=== PATIENT | female | born 1950 | race Asian ===

== ENCOUNTER 2025-02-20 06:52 | Inpatient (IN) | payer MEDICARE, SELFPAY ==
[2025-02-20] VITALS (65 sets, daily range): BP systolic 111–173; BP diastolic 55–108; PULSE 84–104; RESP 14–38; TEMP 28.7–37.1; O2SAT 29–98; BMI 32.3; BMI 32.5
[2025-02-20] MEDS: ALBUTEROL/IPRATROPIUM 3 ML AMPUL INH (07:14)
--- NOTE | 2025-02-20 07:16 | PC.NURSE ---
RT at [facility], placing pt on BiPAP, 6mg duoneb given per Dr. Avila, 125mg solumedrol given IV. Pt desat down to 27% RA, placed on NRB with minimal improvement
--- NOTE | 2025-02-20 07:18 | DI.RAD.S_ITS ---
PROCEDURE: XR CHEST 1V INDICATIONS: Shortness of breath TECHNIQUE: One view of the chest was acquired. COMPARISON: None. FINDINGS: Surgical changes and devices: None. Lungs and pleura: Extensive right-sided fluffy consolidation. Mild patchy consolidation in the left lung. Mediastinum: Mediastinal contours appear normal. Heart size is normal. Bones and chest wall: No suspicious bony lesions. Overlying soft tissues appear unremarkable. IMPRESSION: Findings may either be remarkably asymmetric pulmonary edema or bilateral pneumonia, right much greater than left. Recommend clinical correlation. Comment: Progress films are recommended until clear. Dictated by: Harris De La Paz M.D. on 02/20/2025 at 8:13 Approved by: Harris De La Paz M.D. on 02/20/2025 at 8:14
[2025-02-20 07:19] LABS: Allen Test for ABG Passed? Positive; Blood Gas Collection Site Left Radial; HCO3 ABG 28 mmol/L (23-27); Oxygen Saturation ABG 76 % (95-100); PCO2 ABG 57.8 mmHg (35-45); PO2 ABG 46 mmHg (80-100); TCO2 ABG 27 mmol/L (23-27)
[2025-02-20] MEDS: FUROSEMIDE 40 MG/4 ML VIAL IV ×2 (07:30→12:26)
[2025-02-20 07:43] LABS: Hematocrit 43.0 % (36-46); Hemoglobin 14.0 g/dL (12.0-16.0); Mean Corpuscular HGB Conc 32.6 % (30-36); Mean Corpuscular Hemoglobin 29.6 PG (26-34); Mean Corpuscular Volume 90.7 fL (80-100); Platelet Count 223 X10^3/uL (150-400)
[2025-02-20 07:48] LABS: Add Manual Diff / Slide Review YES
[2025-02-20 07:49] LABS: Lactate (Lactic Acid) 2.1 mmol/L (0.7-2.1)
[2025-02-20 07:50] LABS: Alanine Aminotransferase 32 IU/L (<35); Albumin 4.2 g/dL (3.5-5.0); Albumin Globulin Ratio 1.0 (1.0-2.8); Alkaline Phosphatase 102 U/L (38-126); Blood Urea Nitrogen 58 mg/dL (7-17); Calcium 9.1 mg/dL (8.4-10.2); Carbon Dioxide 25 mmol/L (22-32); Chloride 104 mmol/L (98-107); Estimated Glomerular Filt Rate 17 mL/min (>60); Globulin 4.1 g/dL (1.7-4.1); Glucose 335 mg/dL (70-99); HEMOLYSIS 24 (0-50); Potassium 5.1 mmol/L (3.4-5.1); Sodium 140 mmol/L (137-145); Total Protein 8.3 g/dL (6.3-8.2)
[2025-02-20 08:02] LABS: NT-proBNP (BNP-Adult 18+) 5020 pg/mL (<125); Troponin I 0.044 ng/mL (0.01-0.034)
[2025-02-20 08:12] LABS: INR 1.1 (0.9-1.3); Prothrombin Time 12.3 SECONDS (9.4-12.5)
[2025-02-20 08:17] LABS: Procalcitonin 5.84 ng/mL (<0.5)
[2025-02-20 08:23] LABS: Band Neutrophils Percent 34.0 % (3-7); Lymphocytes Percent Manual 7.0 % (25-45); Monocytes Percent Manual 6.0 % (2-11); Neutrophils Absolute Manual 15834 /uL (3000-5900); Segmented Neutrophils Percent 53.0 % (38-70); Total Cells Counted 100
[2025-02-20 08:24] LABS: RBC Morphology Normal Morphology
--- NOTE | 2025-02-20 08:31 | ED_ITS ---
HPI - SOB/Dyspnea General Chief Complaint: Shortness of Breath/Dyspnea Stated Complaint: SOB , wheezing X 1 day Time Seen by Provider: 02/20/25 07:21 Source: patient Mode of arrival: Wheelchair Limitations: no limitations History of Present Illness HPI Narrative: 74-year-old woman visiting her family from the [facility] comes to the ER because of sudden onset of shortness of breath which has been worsening over the past day or so. They deny any fever or chills sweats upper respiratory symptoms, chest pain, palpitations, syncope, lightheadedness. Her primary complaint is shortness of breath. Her oxygen saturation was in the 20s to 30s with a good plus on room air on presentation. On 15 L non-rebreather mask she was able to get up into the 80s and then when she was put on BiPAP she was into the 90s. She was given Solu-Medrol, DuoNebs, and Lasix as soon as possible because she also has an apparent history of CHF and her physical exam was consistent with pulmonary edema. Related Data Allergies Allergy/AdvReac Type Severity Reaction Status Date / Time No Known Drug Allergies Allergy Verified 02/20/25 07:12 Patient History Smoking Status: Never smoker Exam Initial Vital Signs Initial Vital Signs: Vital Signs Temperature 98.8 F 02/20/25 07:07 Pulse Rate 104 H 02/20/25 07:07 Respiratory Rate 30 H 02/20/25 07:07 Blood Pressure 173/81 H 02/20/25 07:07 Pulse Oximetry 53 L 02/20/25 07:07 Oxygen Delivery Method Room Air 02/20/25 07:07 Const General: acute distress, in distress, No diaphoretic, ill appearing and No lethargic Nutritional Appearance: overweight [facility] Head: normocephalic and atraumatic Nose: external nose normal and No nasal discharge Face and sinus: normal facial exam Neck Carotids: no bruits Chest Chest: normal inspection of the chest Resp Effort & Inspection: labored, respiratory distress, tachypneic, uses accessory muscles and symmetric chest movement Auscultation: crackles, diminished lung sounds and wheezes Cardio Rate: tachycardic Rhythm: regular rhythm Heart Sounds: S1 normal and S2 normal GI Palpation: soft and No tender Course Course Course Narrative: Patient seen and examined upon arrival in the ER. Her oxygen saturation was poor on room air but improved to a more acceptable level once she was on non- rebreather mask and improved even further once on BiPAP. Her ABG showed acidosis, hypoxia, hypercarbia, her exam was consistent with CHF exacerbation and asthma exacerbation as she did have response to DuoNeb immediately as well. She also had sepsis labs drawn but there was no clear evidence of pneumonia and she also had no fever. She did meet SIRS criteria however. The hospitalist was informed of this. The patient stabilized while on BiPAP but she will need admission for ongoing treatment of her CHF/asthma exacerbation and she should have a V/Q scan to rule out a PE as she can not have a CTA because of her poor kidney function. Decision to Admit Date: 02/20/25 Decision to Admit time: 08:20 Orders Ordered: ED Orders 02/20/25 07:05 C-Reactive Protein Quant Stat Complete Blood Count AUTO DIFF Stat Comprehensive Metabolic Panel Stat D Dimer Stat Lactate (Lactic Acid) Stat NT-proBNP (BNP-Adult 18+) Stat PTT Partial Thromboplastin Cb Stat Prothrombin Time INR Stat Troponin I Stat 02/20/25 07:10 ABG [Arterial Blood Gas] STAT 02/20/25 07:15 Procalcitonin Stat 02/20/25 07:18 XR chest 1V Stat EKG-12 Lead Stat RT Consult Eval and Treat STAT 02/20/25 07:21 Respiratory Panel (Film Array) Stat 02/20/25 07:22 EKG-12 Lead Stat 02/20/25 07:25 Respiratory Panel (Film Array) Stat BiPAP Ventilatory Support RT PROTOCOL 02/20/25 08:13 CT angio chest PE protocol Stat 02/20/25 08:15 Blood Culture Stat 02/20/25 08:27 NM pul vent and perfusion Stat 02/20/25 09:05 Troponin I Stat 02/20/25 11:15 ABG [Arterial Blood Gas] STAT Discontinued Medications Albuterol/Ipratropium (Albuterol/Ipratropium 3 Ml Ampul) 3 ml INH NOW ONE Stop: 02/20/25 07:12 Last Admin: 02/20/25 07:14 Dose: 3 ml Documented By: SANDRA Furosemide (Furosemide 40 Mg/4 Ml Vial) 40 mg IV NOW ONE Stop: 02/20/25 07:23 Last Admin: 02/20/25 07:30 Dose: 40 mg Documented By: JUAN MANUEL Methylprednisolone (Methylprednisolone 125 Mg/2 Ml Vial) 125 mg IV NOW ONE Stop: 02/20/25 07:12 Last Admin: 02/20/25 07:14 Dose: 125 mg Documented By: SANDRA Vital Signs Vital signs: Vital Signs - 8 hr 02/20/25 07:07 02/20/25 07:33 Temperature 98.8 F Pulse Rate 104 H Respiratory Rate 30 H Blood Pressure 173/81 H 173/81 H Pulse Oximetry 53 L Oxygen Delivery Method Room Air Fraction of Inspired Oxygen 55 MDM - SOB/Dyspnea Differential Diagnosis Differential diagnosis: Likely congestive heart failure and asthma with exacerbation Condition is:: Improved Lab Data 02/20/25 07:05 02/20/25 07:05 Labs: Lab Results 02/20/25 02/20/25 Range/Units 07:05 07:15 WBC 18.2 H (4.5-11.0) X10^3/uL RBC 4.73 (4.0-5.2) X10^6/uL Hgb 14.0 (12.0-16.0) g/dL Hct 43.0 (36-46) % MCV 90.7 (80-100) fL MCH 29.6 (26-34) PG MCHC 32.6 (30-36) % RDW 16.4 H (11.6-14.8) % Plt Count 223 (150-400) X10^3/uL Neut % (Auto) Not Reportable Lymph % (Auto) Not Reportable [place] % (Auto) Not Reportable Eos % (Auto) Not Reportable Baso % (Auto) Not Reportable Lymph # (Auto) Not Reportable [place] # (Auto) Not Reportable Baso # (Auto) Not Reportable Total Counted 100 Seg Neutrophils % 53.0 (38-70) % Band Neutrophils % 34.0 H (3-7) % Lymphocytes % (Manual) 7.0 L (25-45) % Monocytes % (Manual) 6.0 (2-11) % Neutrophils # (Manual) 55382 H (3089-2508) /uL Platelet Estimate Adequate on smear RBC Morphology Normal morphology PT 12.3 (9.4-12.5) SECONDS INR 1.1 (0.9-1.3) D-Dimer 1784 H (<500) ng/ml ABG Sample Site Left radial ABG pH 7.29 L* (7.35-7.45) ABG pCO2 57.8 H (35-45) mmHg ABG pO2 46 L* (80-100) mmHg ABG HCO3 28 H (23-27) mmol/L ABG Total CO2 27 (23-27) mmol/L ABG O2 Saturation 76 L* (95-100) % ABG Base Excess -0.5 (-2-3) mmol/L Braden Test Positive Sodium 140 (137-145) mmol/L Potassium 5.1 (3.4-5.1) mmol/L Chloride 104 (98-107) mmol/L Carbon Dioxide 25 (22-32) mmol/L BUN 58 H (7-17) mg/dL Creatinine 2.86 H (0.52-1.04) mg/dL Estimated GFR 17 L (>60) mL/min BUN/Creatinine Ratio 20.3 (6-22) Glucose 335 H (70-99) mg/dL Lactate 2.1 (0.7-2.1) mmol/L Calcium 9.1 (8.4-10.2) mg/dL Total Bilirubin 1.2 (0.2-1.3) mg/dL AST 48 H (14-36) IU/L ALT 32 (<35) IU/L Alkaline Phosphatase 102 (38-126) U/L Troponin I 0.044 H (0.01-0.034) ng/mL NT-Pro-B Natriuret Pep 5020 H (<125) pg/mL Total Protein 8.3 H (6.3-8.2) g/dL Albumin 4.2 (3.5-5.0) g/dL Globulin 4.1 (1.7-4.1) g/dL Albumin/Globulin Ratio 1.0 (1.0-2.8) Procalcitonin 5.84 H (<0.5) ng/mL MDM Narrative Medical decision making narrative: Patient is on BiPAP and will thus need to be admitted Discharge Plan Departure Patient Disposition: Admitted As Inpatient Clinical Impression: Congestive heart failure Qualifiers: Heart failure type: unspecified Heart failure chronicity: acute on chronic Q ualified Code(s): I50.9 - Heart failure, unspecified Admit Date/Time: 02/20/25 08:32
[2025-02-20 08:43] LABS: PTT Partial Thromboplastin Tim 34 SECONDS (25.1-36.5)
--- NOTE | 2025-02-20 08:46 | EKG_ITS ---
[address] [address] Test Date: 2025-02-20 Pat Name: Radha Telles Department: [facility] Room: 90A Gender: Female [employer] Receivable Coordinator: ALESSIO : 1950 Requested By: Order Number: [id number] Reading MD: Robert Rodriguez MD Measurements Intervals [place] Rate: 90 P: 57 MT: 220 QRS: 29 QRSD: 78 T: 82 QT: 366 QTc: 447 Interpretive Statements Sinus rhythm with 1st degree AV block Low voltage QRS Electronically Signed On 02-20-2025 12:15:48 PDT by Robert Rodriguez MD
[2025-02-20 09:15] LABS: Coronavirus NL 63 Not Detected (Not Detect); SARS- CoV-2 Not Detected (Not Detecte)
[2025-02-20 09:20] LABS: Reflexed Lactate in 2 Hours Y
[2025-02-20 09:59] LABS: Lactate 2HR (Lactic Acid Rflx) 1.7 mmol/L (0.7-2.1)
--- NOTE | 2025-02-20 10:03 | PC.ADMIT ---
[address] Admission Note: Pt arrived via stretcher from the ED at approximately 0945, A&Ox4, on BiPAP, O2 saturation 89%. BP 137/85, HR 90, RR 28. Provider notified of pt arrival. Pt unable to void on bedpan or on pad, provider notified. Pt oriented to room and call light, family at bedside. Left astudillo ring removed and given to family due to hand edema. Care ongoing. The patient,Radha Telles,74 y/o, was given written information regarding hospital policies, unit procedures and contact persons. Patient's smoking status: Never smoker. Vital Signs - 8 hr 02/20/25 06:56 02/20/25 07:05 02/20/25 07:07 Temperature 98.8 F Pulse Rate 95 H 104 H Respiratory Rate 30 H Blood Pressure 173/81 H Pulse Oximetry 29 L 46 L 53 L Oxygen Delivery Method Room Air Non -Rebreather Room Air Fraction of Inspired Oxygen 02/20/25 07:07 02/20/25 07:07 02/20/25 07:15 Temperature Pulse Rate 104 H Respiratory Rate Blood Pressure 173/81 H Pulse Oximetry 76 L 85 L Oxygen Delivery Method Non -Rebreather BiPAP Fraction of Inspired Oxygen 02/20/25 07:30 02/20/25 07:33 02/20/25 07:51 Temperature Pulse Rate 102 H 97 H Respiratory Rate 23 Blood Pressure 173/81 H Pulse Oximetry 91 91 Oxygen Delivery Method BiPAP BiPAP Fraction of Inspired Oxygen 55 02/20/25 07:51 02/20/25 08:00 02/20/25 08:00 Temperature Pulse Rate 96 H Respiratory Rate 21 Blood Pressure 124/59 L 118/56 L Pulse Oximetry 89 L Oxygen Delivery Method BiPAP Fraction of Inspired Oxygen 02/20/25 08:30 02/20/25 08:30 02/20/25 09:00 Temperature Pulse Rate 91 H 88 Respiratory Rate 22 21 Blood Pressure 111/55 L Pulse Oximetry 89 L 91 Oxygen Delivery Method BiPAP BiPAP Fraction of Inspired Oxygen 02/20/25 09:00 02/20/25 09:29 02/20/25 09:29 Temperature Pulse Rate 92 H Respiratory Rate 17 Blood Pressure 111/55 L 128/65 Pulse Oximetry 90 L Oxygen Delivery Method BiPAP Fraction of Inspired Oxygen 02/20/25 09:30 02/20/25 09:30 02/20/25 10:00 Temperature Pulse Rate 92 H 93 H Respiratory Rate 14 21 Blood Pressure 132/68 Pulse Oximetry 89 L 92 Oxygen Delivery Method BiPAP Fraction of Inspired Oxygen 02/20/25 10:00 Temperature Pulse Rate Respiratory Rate Blood Pressure 131/65 Pulse Oximetry Oxygen Delivery Method Fraction of Inspired Oxygen
[2025-02-20 10:10] LABS: Troponin I 0.056 ng/mL (0.01-0.034)
--- NOTE | 2025-02-20 10:23 | PC.NURSE ---
0715 Patient placed on BIPAP. RT and Dr. Salguero at bedside.
--- NOTE | 2025-02-20 10:34 | RT ---
pt transported on BIPAP to ICU without incident, ambu Bag at [facility] with RN. Pt [facility] well, and Bipap plugged into red outlet upon arrival with current settings on pt. Family at bedside and pt comfortable
[2025-02-20] MEDS: AZITHROMYCIN 500 MG in DEXTROSE 5% IN WATER 250 ML 250 MG IV (11:08)
--- NOTE | 2025-02-20 11:31 | P.HP_ITS ---
History of Present Illness History of Present Illness Date Patient Seen: 02/20/25 Time Patient Seen: 11:31 Chief complaint: SOB , wheezing X 1 day Narrative: This is a 74-year-old female, visiting from the [facility], with a history of asthma, congestive heart failure, chronic kidney disease, diabetes mellitus type 2, hypertension and diabetic neuropathy who presents with 1 day of increasing shortness of breath along with a mild cough. She has had no fevers or chills. She has no chest pain. Her chest x-ray shows an area of obvious infiltrate in the right lung, less impressive on the left side. Her D-dimer is 1784 with a troponin of 0.056, a CRP of 37.1 and a procalcitonin of 5.84. The white blood count is 18.2 and the BNP is 5020. This would suggest both congestive heart failure and pneumonia are present. Unfortunately with a creatinine of 2.86 she is not a candidate for CTA of the chest so will need a V/Q scan when that is available. Her list of medications includes several from the [facility] that are not typically used here or able to match to the medications we have available. [facility] Medical History (Updated 02/20/25 @ 19:05 by Robert Odonnell MD) Diabetic neuropathy Hypertension Diabetes mellitus CKD (chronic kidney disease) stage 4, GFR 15-29 ml/min Active asthma Congestive heart failure Family History (Updated 02/20/25 @ 19:01 by Robert Odonnell MD) Daughter Healthy adult Son Healthy adult Social History household members: spouse Smoking Status: Never smoker Meds Home Medications and Allergies Home Medications ?Medication ?Instructions ?Recorded ?Confirmed ?Type Rezpira See Rx Instructions .Route . COMPLEX 02/20/25 02/20/25 History rosuvastatin 20 mg tablet (Crestor) 20 mg PO DAILY 07/0702/20/25 History Allergies Allergy/AdvReac Type Severity Reaction Status Date / Time No Known Drug Allergies Allergy Verified 02/20/25 07:12 Review of Systems Review of Systems Narrative: Positive for shortness of breath and coughing. Negative for fevers, chills, sweats, nausea, vomiting, abdominal pain, chest pain, rashes, bleeding, dysuria, joint pain, headache, sore throat, new allergies. Exam Vital Signs (past 8 hours): - 02/20/25 06:56 02/20/25 07:05 02/20/25 07:07 Temperature 98.8 F Pulse Rate 95 H 104 H Respiratory Rate 30 H Blood Pressure 173/81 H Pulse Oximetry 29 L 46 L 53 L Oxygen Delivery Method Room Air Non -Rebreather Room Air Fraction of Inspired Oxygen 02/20/25 07:07 02/20/25 07:07 02/20/25 07:15 Temperature Pulse Rate 104 H Respiratory Rate Blood Pressure 173/81 H Pulse Oximetry 76 L 85 L Oxygen Delivery Method Non -Rebreather BiPAP Fraction of Inspired Oxygen 02/20/25 07:30 02/20/25 07:33 02/20/25 07:51 Temperature Pulse Rate 102 H 97 H Respiratory Rate 23 Blood Pressure 173/81 H Pulse Oximetry 91 91 Oxygen Delivery Method BiPAP BiPAP Fraction of Inspired Oxygen 55 02/20/25 07:51 02/20/25 08:00 02/20/25 08:00 Temperature Pulse Rate 96 H Respiratory Rate 21 Blood Pressure 124/59 L 118/56 L Pulse Oximetry 89 L Oxygen Delivery Method BiPAP Fraction of Inspired Oxygen 02/20/25 08:30 02/20/25 08:30 02/20/25 09:00 Temperature Pulse Rate 91 H 88 Respiratory Rate 22 21 Blood Pressure 111/55 L Pulse Oximetry 89 L 91 Oxygen Delivery Method BiPAP BiPAP Fraction of Inspired Oxygen 02/20/25 09:00 02/20/25 09:29 02/20/25 09:29 Temperature Pulse Rate 92 H Respiratory Rate 17 Blood Pressure 111/55 L 128/65 Pulse Oximetry 90 L Oxygen Delivery Method BiPAP Fraction of Inspired Oxygen 02/20/25 09:30 02/20/25 09:30 02/20/25 09:30 Temperature Pulse Rate 92 H 92 H Respiratory Rate 14 20 Blood Pressure 132/68 Pulse Oximetry 89 L Oxygen Delivery Method BiPAP Fraction of Inspired Oxygen 02/20/25 10:00 02/20/25 10:00 02/20/25 10:10 Temperature Pulse Rate 93 H Respiratory Rate 21 Blood Pressure 131/65 111/55 L Pulse Oximetry 92 Oxygen Delivery Method Fraction of Inspired Oxygen 60 Fraction of Inspired Oxygen 60 Oxygen Delivery Method BiPAP Narrative Exam Narrative: Alert and oriented times 3. Moderate respiratory distress present. Wearing BiPAP. Pupils are equally round and reactive to light and accommodation. Extraocular muscles are intact. Sclerae are pink and nonicteric. Throat looks normal. No lymph nodes are felt head, neck, supraclavicular area. There is no thyromegaly. JVD is less than 6 cm. No carotid bruits heard Heart is regular rate and rhythm without murmur Lungs clear to auscultation bilaterally Abdomen is soft, bowel sounds positive, nontender, no organomegaly. Extremities have no ankle edema Skin has no rash Neurological exam: Motor function 5/5 throughout. DTRs symmetric. Cranial nerves 2-12 test intact. There is no tremor. Objective Labs 02/20/25 07:05 02/20/25 07:05 Labs: Laboratory Results - last 24 hr 02/20/25 02/20/25 02/20/25 07:05 07:15 07:17 WBC 18.2 H RBC 4.73 Hgb 14.0 Hct 43.0 MCV 90.7 MCH 29.6 MCHC 32.6 RDW 16.4 H Plt Count 223 Neut % (Auto) Not Reportable Lymph % (Auto) Not Reportable [place] % (Auto) Not Reportable Eos % (Auto) Not Reportable Baso % (Auto) Not Reportable Lymph # (Auto) Not Reportable [place] # (Auto) Not Reportable Baso # (Auto) Not Reportable Total Counted 100 Seg Neutrophils % 53.0 Band Neutrophils % 34.0 H Lymphocytes % (Manual) 7.0 L Monocytes % (Manual) 6.0 Neutrophils # (Manual) 59049 H Platelet Estimate Adequate on smear RBC Morphology Normal morphology PT 12.3 INR 1.1 APTT 34 D-Dimer 1784 H ABG Sample Site Left radial ABG pH 7.29 L* ABG pCO2 57.8 H ABG pO2 46 L* ABG HCO3 28 H ABG Total CO2 27 ABG O2 Saturation 76 L* ABG Base Excess -0.5 Braden Test Positive Sodium 140 Potassium 5.1 Chloride 104 Carbon Dioxide 25 BUN 58 H Creatinine 2.86 H Estimated GFR 17 L BUN/Creatinine Ratio 20.3 Glucose 335 H POC Whole Bld Glucose Lactate 2.1 Calcium 9.1 Total Bilirubin 1.2 AST 48 H ALT 32 Alkaline Phosphatase 102 Troponin I 0.044 H C-Reactive Protein 37.1 H NT-Pro-B Natriuret Pep 5020 H Total Protein 8.3 H Albumin 4.2 Globulin 4.1 Albumin/Globulin Ratio 1.0 Procalcitonin 5.84 H Chlamy pneumoniae PCR Not detected Adenovirus (PCR) Not detected B. pertussis DNA (PCR) Not detected B.parapertussis DNA PCR Not detected Coronavirus OC43 (PCR) Not detected Coronavirus HKU1 (PCR) Not detected Coronavirus 229E (PCR) Not detected SARS-CoV-2 (PCR) Not detected Coronavirus NL63 (PCR) Not detected Human Metapneumovir PCR Not detected Influenza Type A (PCR) Not detected Influenza Type B (PCR) Not detected M. pneumoniae (PCR) Not detected Parainfluenza 1 (PCR) Not detected Parainfluenza 2 (PCR) Not detected Parainfluenza 3 (PCR) Not detected Parainfluenza 4 (PCR) Not detected RSV (PCR) Not detected Entero/Rhino (PCR) Not detected 02/20/25 02/20/25 09:25 10:39 WBC RBC Hgb Hct MCV MCH MCHC RDW Plt Count Neut % (Auto) Lymph % (Auto) [place] % (Auto) Eos % (Auto) Baso % (Auto) Lymph # (Auto) [place] # (Auto) Baso # (Auto) Total Counted Seg Neutrophils % Band Neutrophils % Lymphocytes % (Manual) Monocytes % (Manual) Neutrophils # (Manual) Platelet Estimate RBC Morphology PT INR APTT D-Dimer ABG Sample Site ABG pH ABG pCO2 ABG pO2 ABG HCO3 ABG Total CO2 ABG O2 Saturation ABG Base Excess Braden Test Sodium Potassium Chloride Carbon Dioxide BUN Creatinine Estimated GFR BUN/Creatinine Ratio Glucose POC Whole Bld Glucose 342 H Lactate 1.7 Calcium Total Bilirubin AST ALT Alkaline Phosphatase Troponin I 0.056 H C-Reactive Protein NT-Pro-B Natriuret Pep Total Protein Albumin Globulin Albumin/Globulin Ratio Procalcitonin Chlamy pneumoniae PCR Adenovirus (PCR) B. pertussis DNA (PCR) B.parapertussis DNA PCR Coronavirus OC43 (PCR) Coronavirus HKU1 (PCR) Coronavirus 229E (PCR) SARS-CoV-2 (PCR) Coronavirus NL63 (PCR) Human Metapneumovir PCR Influenza Type A (PCR) Influenza Type B (PCR) M. pneumoniae (PCR) Parainfluenza 1 (PCR) Parainfluenza 2 (PCR) Parainfluenza 3 (PCR) Parainfluenza 4 (PCR) RSV (PCR) Entero/Rhino (PCR) Assessment & Plan Assessment & Plan narrative: This is a 74-year-old female, visiting from the [facility], with a history of asthma, congestive heart failure, chronic kidney disease, diabetes mellitus type 2, hypertension and diabetic neuropathy who presents with 1 day of increasing shortness of breath along with a mild cough. She has had no fevers or chills. She has no chest pain. Her chest x-ray shows an area of obvious infiltrate in the right lung, less impressive on the left side. Her D-dimer is 1784 with a troponin of 0.056, a CRP of 37.1 and a procalcitonin of 5.84. The white blood count is 18.2 and the BNP is 5020. This would suggest both congestive heart failure and pneumonia are present. Acute Hypoxemic Respiratory Failure, present on admission, active. -oxygen saturation was in the 20s to 30s on room air on presentation. On 15 L non-rebreather mask she was able to get up into the 80s and then when she was put on BiPAP she was into the 90s. -rule out PE with V/Q scan, pending. -most likely due to a combination of congestive heart failure and pneumonia based on preliminary test results -chest x-ray is compatible with both diagnoses. -oxygen by BiPAP or high-flow nasal cannula and titrate as needed. -beta agonist inhaler therapy. Pneumonia, present on admission, active. -ceftriaxone and azithromycin. -white blood count 18.2, follow -procalcitonin 5.84, follow. CHF, present on admission, active. -echocardiogram ordered -Lasix IV q.12 hours and follow electrolytes. -follow troponin. -continue losartan Insulin Dependent DM with Diabetic Neuropathy, present on admission, chronic. -substitute Lantus for Humulin N -continue lispro high-dose correctional scale -continue Lyrica -Check ketones and serum osmolality due to blood sugar reaching above 500 despite SQ insulin several hours after admission. Hyperlipidemia, present on admission, chronic. -continue atorvastatin Chronic Kidney disease, present on admission, chronic. -creatinine 2.86, follow. Hypertension, present on admission, chronic. -continue clonidine, amlodipine, losartan. Starting on doses that are below her usual chronic dose. Adjust as indicated. Her backup decision maker is her and her daughter who is an ED doctor. Enoxaparin for DVT prevention Time-Based Coding :: [TOTAL MINUTES] spent with patient and on the chart (including review of chart, obtaining history, exam, reviewing outside data, placing orders, documenting exam and treatment plan, and counseling patient) on [DATE].
[2025-02-20] MEDS: cefTRIAXone 2,000 MG in SODIUM CHLORIDE 0.9% 100 ML 200 MG IV (12:25)
[2025-02-20] MEDS: INSULIN LISPRO 100 UNIT/ML 3ML VIAL SUBCUT ×3 (12:48→21:33)
--- NOTE | 2025-02-20 14:56 | PC.NURSE ---
Addendum entered by Deepa Juárez R.N. 02/20/25 19:07: Glucose reported back by lab, provider notified. New orders received. Care ongoing. Addendum entered by Deepa Juárez R.N. 02/20/25 18:41: Pt on heated high flow for a period of the evening. Back on BiPAP at 1835 d/t SOB and fatigue with oxygen desaturation despite RT increasing heated high flow FiO2 and liters. Glucose on recheck >500, provider notified, lab drawn per protocol for verification. Care ongoing. Original Note: Day shift: Pt A&Ox4, tolerating BiPAP. Dior catheter placed. Off BiPAP at approximately 1225 for meal, on 7L NC saturation 86%-94%. Pt back on BiPAP at 1330, settings remained unchanged. Family at bedside. Home medication list sent to pharmacy for rec d/t differing brands/out of country brands of medications and clarificiation. Call light within reach, care ongoing.
[2025-02-20] MEDS: INSULIN GLARGINE 100 UNIT/ML 3ML PEN 20 UNIT SUBCUT ×2 (17:00→21:32)
[2025-02-20] MEDS: INSULIN LISPRO 100 UNIT/ML 3ML VIAL 16 UNIT SUBCUT (18:53)
[2025-02-20 18:56] LABS: Glucose 569 mg/dL (70-99)
[2025-02-20 19:20] LABS: MRSA (Nasal) PCR NOT DETECTED (Not Detect)
[2025-02-20 20:04] LABS: Blood Urea Nitrogen 69 mg/dL (7-17); Calcium 7.9 mg/dL (8.4-10.2); Carbon Dioxide 29 mmol/L (22-32); Chloride 97 mmol/L (98-107); Estimated Glomerular Filt Rate 17 mL/min (>60); HEMOLYSIS < 15 (0-50); Sodium 135 mmol/L (137-145)
[2025-02-20 20:11] LABS: Ketones (Beta-Hydroxybutyrate) 0.05 mmol/L (<0.27)
[2025-02-20 20:17] LABS: Potassium 5.4 mmol/L (3.4-5.1)
[2025-02-20 20:18] LABS: Glucose 566 mg/dL (70-99)
[2025-02-20] MEDS: ATORVASTATIN 20 MG TABLET 40 MG PO (21:16)
[2025-02-20] MEDS: FAMOTIDINE 20 MG/2 ML VIAL IV (21:16)
[2025-02-20] MEDS: INSULIN GLARGINE 100 UNIT/ML 3ML PEN 10 UNIT SUBCUT (21:32)
[2025-02-20] MEDS: ALBUTEROL 2.5 MG/3 ML NEB (ADULT) INH (21:54)
[2025-02-20] MEDS: BUDESONIDE 0.5 MG/2 ML NEB INH (21:55)
[2025-02-21] VITALS (99 sets, daily range): BP systolic 107–145; BP diastolic 55–81; PULSE 75–101; RESP 14–42; TEMP 36.6; O2SAT 82–97
[2025-02-21] MEDS: FUROSEMIDE 40 MG/4 ML VIAL IV ×2 (00:12→12:01)
[2025-02-21 05:05] LABS: Add Manual Diff / Slide Review NO; Hematocrit 36.3 % (36-46); Hemoglobin 11.9 g/dL (12.0-16.0); Lymphocytes Absolute Auto 600 /uL (1100-4500); Mean Corpuscular HGB Conc 32.7 % (30-36); Mean Corpuscular Hemoglobin 29.4 PG (26-34); Mean Corpuscular Volume 89.7 fL (80-100); Platelet Count 170 X10^3/uL (150-400)
[2025-02-21 05:27] LABS: Alanine Aminotransferase 29 IU/L (<35); Albumin 3.5 g/dL (3.5-5.0); Albumin Globulin Ratio 1.0 (1.0-2.8); Alkaline Phosphatase 87 U/L (38-126); Blood Urea Nitrogen 80 mg/dL (7-17); Calcium 8.1 mg/dL (8.4-10.2); Carbon Dioxide 28 mmol/L (22-32); Chloride 101 mmol/L (98-107); Estimated Glomerular Filt Rate 14 mL/min (>60); Globulin 3.4 g/dL (1.7-4.1); Glucose 306 mg/dL (70-99); HEMOLYSIS < 15 (0-50); Potassium 4.9 mmol/L (3.4-5.1); Sodium 138 mmol/L (137-145); Total Protein 6.9 g/dL (6.3-8.2)
[2025-02-21 05:34] LABS: NT-proBNP (BNP-Adult 18+) 4850 pg/mL (<125)
[2025-02-21 05:38] LABS: Troponin I 0.074 ng/mL (0.01-0.034)
[2025-02-21 05:42] LABS: Procalcitonin 12.0 ng/mL (<0.5)
[2025-02-21] MEDS: ALBUTEROL 2.5 MG/3 ML NEB (ADULT) INH ×5 (07:27→23:00)
[2025-02-21] MEDS: BUDESONIDE 0.5 MG/2 ML NEB INH ×2 (07:27→19:17)
[2025-02-21] MEDS: INSULIN LISPRO 100 UNIT/ML 3ML VIAL SUBCUT ×3 (08:52→16:43)
[2025-02-21] MEDS: AMLODIPINE 5 MG TABLET 2.5 MG PO (08:53)
[2025-02-21] MEDS: PREGABALIN 75 MG CAPSULE PO (08:53)
[2025-02-21] MEDS: LOSARTAN 25 MG TABLET 12.5 MG PO (08:53)
[2025-02-21] MEDS: ENOXAPARIN 30 MG/0.3 ML SYRINGE SUBCUT (08:54)
[2025-02-21] MEDS: cefTRIAXone 2,000 MG in SODIUM CHLORIDE 0.9% 100 ML 200 MG IV (12:00)
[2025-02-21] MEDS: AZITHROMYCIN 500 MG in DEXTROSE 5% IN WATER 250 ML 250 MG IV (12:04)
--- NOTE | 2025-02-21 12:18 | DI.RAD.S_ITS ---
PROCEDURE: XR CHEST 1V INDICATIONS: sob TECHNIQUE: One view of the chest was acquired. COMPARISON: [facility], CR, XR CHEST 1V, 02/20/2025, 7:24. FINDINGS: Surgical changes and devices: None. Lungs and pleura: Bilateral patchy airspace opacity, right greater than left. Not significantly changed compared to yesterday. No significant pleural effusions. No pneumothorax. Mediastinum: Mediastinal contours appear normal. Heart size is enlarged. Bones and chest wall: No suspicious bony lesions. Overlying soft tissues appear unremarkable. IMPRESSION: No significant interval change. Bilateral patchy airspace opacity, right greater than left. Dictated by: Des Muñoz M.D. on 02/21/2025 at 12:29 Approved by: Des Muñoz M.D. on 02/21/2025 at 12:30
--- NOTE | 2025-02-21 12:19 | P.PN_ITS ---
Subjective Subjective Date Patient Seen: 02/21/25 Interval history: Chief complaint: Shortness for breath secondary to and congestive heart failure History of present illness: 01/21: 74-year-old female, visiting from the [facility], with a history of asthma, congestive heart failure, chronic kidney disease, diabetes mellitus type 2, hypertension and diabetic neuropathy who presents with 1 day of increasing shortness of breath along with a mild cough. She has had no fevers or chills. She has no chest pain. Her chest x-ray shows an area of obvious infiltrate in the right lung, less impressive on the left side. Her D-dimer is 1784 with a troponin of 0.056, a CRP of 37.1 and a procalcitonin of 5.84. The white blood count is 18.2 and the BNP is 5020. This would suggest both congestive heart failure and pneumonia are present. Unfortunately with a creatinine of 2.86 she is not a candidate for CTA of the chest so will need a V/Q scan when that is available. Her list of medications includes several from the [facility] that are not typically used here or able to match to the medications we have available. Hospital course: 01/22: Patient developed severe hypoglycemia greater than 600 insulin infusion started patient intermittently requiring high-flow nasal cannula and BiPAP Review of systems: Patient unable to participate in review of systems Physical exam: Obese female in respiratory distress and able to answer questions in short phrases HEENT unremarkable Heart sounds distant Lung sounds distant with short expiratory phases and wheezes with rales diminished sound transmission at bases and particularly at the right Abdomen nondistended Extremities no edema Moves all extremities Assessment and plan: This is a 74-year-old female, visiting from the [facility], with a history of asthma, congestive heart failure, chronic kidney disease, diabetes mellitus type 2, hypertension and diabetic neuropathy who presents with 1 day of increasing shortness of breath along with a mild cough. She has had no fevers or chills. She has no chest pain. Her chest x-ray shows an area of obvious infiltrate in the right lung, less impressive on the left side. Her D-dimer is 1784 with a troponin of 0.056, a CRP of 37.1 and a procalcitonin of 5.84. The white blood count is 18.2 and the BNP is 5020. This would suggest both congestive heart failure and pneumonia are present. Acute Hypoxemic Respiratory Failure, present on admission, active. -oxygen saturation was in the 20s to 30s on room air on presentation. On 15 L non-rebreather mask she was able to get up into the 80s and then when she was put on BiPAP she was into the 90s. -rule out PE with V/Q scan, pending. -most likely due to a combination of congestive heart failure and pneumonia based on preliminary test results -chest x-ray is compatible with both diagnoses. -oxygen by BiPAP or high-flow nasal cannula and titrate as needed. -beta agonist inhaler therapy. Pneumonia, present on admission, active. -ceftriaxone and azithromycin. -white blood count 18.2, follow -procalcitonin 5.84, follow. CHF, present on admission, active. -echocardiogram ordered -Lasix IV q.12 hours and follow electrolytes. -follow troponin. -continue losartan Insulin Dependent DM with Diabetic Neuropathy, present on admission, chronic. -substitute Lantus for Humulin N -continue lispro high-dose correctional scale -continue Lyrica -Check ketones and serum osmolality due to blood sugar reaching above 500 despite SQ insulin several hours after admission. Hyperlipidemia, present on admission, chronic. -continue atorvastatin Chronic Kidney disease, present on admission, chronic. -creatinine 2.86, follow. Hypertension, present on admission, chronic. -continue clonidine, amlodipine, losartan. Starting on doses that are below her usual chronic dose. Adjust as indicated. Her backup decision maker is her and her daughter who is an ED doctor. Enoxaparin for DVT prevention Time-Based Coding :: 35 minutes spent with patient and on the chart (including review of chart, obtaining history, exam, reviewing outside data, placing orders, documenting exam and treatment plan, and counseling patient) Exam Vital Signs (past 8 hours): - 02/21/25 04:30 02/21/25 04:45 02/21/25 05:00 Pulse Rate 88 83 Respiratory Rate 21 17 Blood Pressure 116/56 L Pulse Oximetry 94 95 Oxygen Delivery Method Oxygen Flow Rate Fraction of Inspired Oxygen 02/21/25 05:00 02/21/25 05:15 02/21/25 05:30 Pulse Rate 81 77 77 Respiratory Rate 17 17 17 Blood Pressure Pulse Oximetry 95 94 92 Oxygen Delivery Method Oxygen Flow Rate Fraction of Inspired Oxygen 02/21/25 05:45 02/21/25 06:00 02/21/25 06:00 Pulse Rate 76 80 Respiratory Rate 18 17 Blood Pressure 110/57 L Pulse Oximetry 91 93 Oxygen Delivery Method Oxygen Flow Rate Fraction of Inspired Oxygen 02/21/25 06:15 02/21/25 06:30 02/21/25 06:45 Pulse Rate 79 80 79 Respiratory Rate 19 18 18 Blood Pressure Pulse Oximetry 94 94 93 Oxygen Delivery Method Oxygen Flow Rate Fraction of Inspired Oxygen 02/21/25 07:00 02/21/25 07:00 02/21/25 07:00 Pulse Rate 81 Respiratory Rate 22 Blood Pressure 108/58 L Pulse Oximetry 95 Oxygen Delivery Method BiPAP Oxygen Flow Rate Fraction of Inspired Oxygen 02/21/25 07:15 02/21/25 07:27 02/21/25 07:30 Pulse Rate 88 82 Respiratory Rate 23 20 Blood Pressure 108/58 L Pulse Oximetry 94 95 Oxygen Delivery Method Oxygen Flow Rate Fraction of Inspired Oxygen 60 02/21/25 07:45 02/21/25 08:00 02/21/25 08:00 Pulse Rate 90 91 H Respiratory Rate 32 H 22 Blood Pressure 112/55 L Pulse Oximetry 97 96 Oxygen Delivery Method Oxygen Flow Rate Fraction of Inspired Oxygen 02/21/25 08:15 02/21/25 08:52 02/21/25 12:13 Pulse Rate 88 92 H 90 Respiratory Rate 22 22 20 Blood Pressure Pulse Oximetry 97 92 94 Oxygen Delivery Method Oxygen Flow Rate Fraction of Inspired Oxygen 02/21/25 12:15 Pulse Rate 90 Respiratory Rate 22 Blood Pressure Pulse Oximetry Oxygen Delivery Method Heated High Flow Oxygen Flow Rate 40 Fraction of Inspired Oxygen 70 Fraction of Inspired Oxygen 70 SaO2/FiO2 Ratio 146 Oxygen Delivery Method Heated High Flow Oxygen Flow Rate 40 Objective Labs 02/21/25 04:17 02/21/25 17:55 Labs: Laboratory Results - last 24 hr 02/20/25 02/20/25 02/20/25 16:40 17:00 18:30 WBC RBC Hgb Hct MCV MCH MCHC RDW Plt Count Neut % (Auto) Lymph % (Auto) [place] % (Auto) Eos % (Auto) Baso % (Auto) Neut # (Auto) Lymph # (Auto) [place] # (Auto) Eos # (Auto) Baso # (Auto) Sodium Potassium Chloride Carbon Dioxide BUN Creatinine Estimated GFR BUN/Creatinine Ratio Glucose 569 H* D POC Whole Bld Glucose 481 H* D > 500 H* Calcium Total Bilirubin AST ALT Alkaline Phosphatase Troponin I NT-Pro-B Natriuret Pep Total Protein Albumin Globulin Albumin/Globulin Ratio Procalcitonin Nasal Screen MRSA (PCR) Not detected Ketones 02/20/25 02/20/25 02/20/25 19:34 20:54 23:27 WBC RBC Hgb Hct MCV MCH MCHC RDW Plt Count Neut % (Auto) Lymph % (Auto) [place] % (Auto) Eos % (Auto) Baso % (Auto) Neut # (Auto) Lymph # (Auto) [place] # (Auto) Eos # (Auto) Baso # (Auto) Sodium 135 L Potassium 5.4 H Chloride 97 L Carbon Dioxide 29 BUN 69 H Creatinine 2.82 H Estimated GFR 17 L BUN/Creatinine Ratio 24.5 H Glucose 566 H* POC Whole Bld Glucose 451 H* 356 H Calcium 7.9 L Total Bilirubin AST ALT Alkaline Phosphatase Troponin I NT-Pro-B Natriuret Pep Total Protein Albumin Globulin Albumin/Globulin Ratio Procalcitonin Nasal Screen MRSA (PCR) Ketones 0.05 02/21/25 02/21/25 02/21/25 04:17 07:36 11:43 WBC 16.1 H RBC 4.05 Hgb 11.9 L Hct 36.3 MCV 89.7 MCH 29.4 MCHC 32.7 RDW 15.7 H Plt Count 170 Neut % (Auto) 92.0 H Lymph % (Auto) 3.7 L [place] % (Auto) 4.2 Eos % (Auto) 0.0 L Baso % (Auto) 0.1 Neut # (Auto) 91768 H Lymph # (Auto) 600 L [place] # (Auto) 700 Eos # (Auto) 0 Baso # (Auto) 0 Sodium 138 Potassium 4.9 Chloride 101 Carbon Dioxide 28 BUN 80 H Creatinine 3.27 H Estimated GFR 14 L BUN/Creatinine Ratio 24.5 H Glucose 306 H D POC Whole Bld Glucose 336 H 450 H* D Calcium 8.1 L Total Bilirubin 0.5 AST 34 ALT 29 Alkaline Phosphatase 87 Troponin I 0.074 H NT-Pro-B Natriuret Pep 4850 H Total Protein 6.9 Albumin 3.5 Globulin 3.4 Albumin/Globulin Ratio 1.0 Procalcitonin 12.0 H Nasal Screen MRSA (PCR) Ketones PFSH Medical History (Updated 02/20/25 @ 19:05 by Robert Odonnell MD) Diabetic neuropathy Hypertension Diabetes mellitus CKD (chronic kidney disease) stage 4, GFR 15-29 ml/min Active asthma Congestive heart failure Family History (Updated 02/20/25 @ 19:01 by oRbert Odonnell MD) Daughter Healthy adult Son Healthy adult Social History household members: spouse Smoking Status: Never smoker Assessment & Plan Time-Based Coding :: [TOTAL MINUTES] spent with patient and on the chart (including review of chart, obtaining history, exam, reviewing outside data, placing orders, documenting exam and treatment plan, and counseling patient) on [DATE].
--- NOTE | 2025-02-21 12:27 | CM.DANOTE ---
B DCP Assessment note pt is a 74yo F visiting from [place] of town ([facility] vs [place] sounds like she lives in [facility] retirement and retired here/comes here for annual provider check up to remain current with MCR benefit.) with CHF/resp failure. was on BiPAP now on heated high flow. PCP None listed Payer medicare and self pay [employer] reviewed EMR. per provider, now switched from BiPAP to heated high flow. new pneumonia diagnosis. very SOB. per RN, pt indep with mobility at baseline, has not got up with them due to being SOB. pt getting breathing treatment/with RN during attempted DCP assessment. P: anticipate return with local family when medically stable. CM team will continue to follow in case any DCP need should arise SUMIT Witt Discharge Planning/Care Management CM Discharge Assessment Start: 02/20/25 08:47 Freq: Status: Active Protocol: Document 02/21/25 12:25 SL (Rec: 02/21/25 12:25 SL Desktop) Discharge Planning Assessment Assigned Discharge SUMIT Frank Office Support Assistant DPOA/Assigned alexandre Cano Designee Name Contact Information [phone] Advance Directives? No History Provided By Patient,Family Member Prior Living House Arrangements Comment Visiting son in [facility] but lives in the [facility] Household Members spouse Independent with ADL Yes 's Is patient alert and Yes oriented? Review Status In Process Please Provide Date 02/21/25 Initial DC Assessment Was Performed Next Review Type Continued Stay Review
[2025-02-21] MEDS: INSULIN NPH 100 UNIT/ML 10ML VIAL 20 UNIT SUBCUT (16:43)
[2025-02-21 18:14] LABS: Blood Urea Nitrogen 93 mg/dL (7-17); Calcium 7.6 mg/dL (8.4-10.2); Carbon Dioxide 26 mmol/L (22-32); Chloride 95 mmol/L (98-107); Estimated Glomerular Filt Rate 12 mL/min (>60); HEMOLYSIS < 15 (0-50); Potassium 5.4 mmol/L (3.4-5.1); Sodium 131 mmol/L (137-145)
[2025-02-21 18:25] LABS: Glucose 630 mg/dL (70-99)
[2025-02-21] MEDS: INSULIN DRIP PREMIX 100 UNIT/100 ML PLAST..BAG 12 UNIT IV (18:50)
--- NOTE | 2025-02-21 19:00 | PC.NURSE ---
1600 - Glucose >500, Dr Oneal made aware, administered ordered 20 units Humulin and 12 units Lispro per high-dose sliding scale 1730 - Rechecked glucose, >500, Dr Oneal made aware, STAT BMP ordered. 175 - BMP drawn by lab 1804 - BMP resulted, glucose still pending 1809 - Glucose 630 reported, Dr Oneal made aware, non-DKA Insulin drip ordered 1829 - [facility] contacted due to medication not being acknowledged, unable to override from Pyxsis
[2025-02-21] MEDS: ATORVASTATIN 20 MG TABLET 40 MG PO (20:39)
[2025-02-21] MEDS: INSULIN GLARGINE 100 UNIT/ML 3ML PEN 15 UNIT SUBCUT (20:40)
[2025-02-21] MEDS: FAMOTIDINE 20 MG/2 ML VIAL IV (20:40)
[2025-02-21 22:34] LABS: Glucose 564 mg/dL (70-99)
[2025-02-22] VITALS (99 sets, daily range): BP systolic 110–146; BP diastolic 55–85; PULSE 68–97; RESP 14–38; TEMP 35.9–36.5; O2SAT 85–98
[2025-02-22 00:04] LABS: Glucose 437 mg/dL (70-99)
[2025-02-22] MEDS: FUROSEMIDE 40 MG/4 ML VIAL IV ×2 (00:20→11:26)
[2025-02-22] MEDS: SODIUM CHLORIDE 0.9% FLUSH 10 ML IV ×4 (00:21→21:05)
[2025-02-22] MEDS: INSULIN DRIP PREMIX 100 UNIT/100 ML PLAST..BAG 16 UNIT IV ×2 (01:22→11:44)
[2025-02-22 06:11] LABS: Hematocrit 34.8 % (36-46); Hemoglobin 11.4 g/dL (12.0-16.0); Mean Corpuscular HGB Conc 32.7 % (30-36); Mean Corpuscular Hemoglobin 29.3 PG (26-34); Mean Corpuscular Volume 89.5 fL (80-100); Platelet Count 188 X10^3/uL (150-400)
[2025-02-22 06:24] LABS: Blood Urea Nitrogen 99 mg/dL (7-17); Calcium 7.9 mg/dL (8.4-10.2); Carbon Dioxide 28 mmol/L (22-32); Chloride 101 mmol/L (98-107); Estimated Glomerular Filt Rate 13 mL/min (>60); Glucose 219 mg/dL (70-99); HEMOLYSIS < 15 (0-50); Potassium 4.9 mmol/L (3.4-5.1); Sodium 136 mmol/L (137-145)
--- NOTE | 2025-02-22 06:48 | PC.NURSE ---
02/21/2025 2244: Dr. Gal Hill, notified of pt blood glucose unmanageable per Z.Non-Diabetic Ketoacidosis Insulin Infusion Order (NDKA) policy. 02/22/2025 0030: Dr. Hill instructed this RN to speak with [facility] for managing insulin drip titration. 0045: Iza from [facility], instructed this RN to adjust insulin gtt rate to 14 mLs/hr. Rationale being, pt was given 20 units of Lantus at bedtime per OCT. 0122: Iza from [facility] called this RN to readjust gtt rate to 16 mLs/hr 0201: Dr. Hill specified pt's target blood glucose range Goal: [phone]: This RN contacted Iza at [facility] to clarify which algorithm the patient should be on per NDKA policy. Instructed to use Algorithm 1 0423: Iza from [facility] called for update on pt's current blood glucose and infusion rate. See Pt's chart for additional information and corresponding documentation
[2025-02-22] MEDS: ALBUTEROL 2.5 MG/3 ML NEB (ADULT) INH ×5 (07:23→23:59)
[2025-02-22] MEDS: BUDESONIDE 0.5 MG/2 ML NEB INH ×2 (07:23→19:37)
[2025-02-22] MEDS: AMLODIPINE 5 MG TABLET 2.5 MG PO (08:20)
[2025-02-22] MEDS: LOSARTAN 25 MG TABLET 12.5 MG PO (08:20)
[2025-02-22] MEDS: ENOXAPARIN 30 MG/0.3 ML SYRINGE SUBCUT (08:21)
[2025-02-22] MEDS: PREGABALIN 75 MG CAPSULE PO (08:21)
[2025-02-22] MEDS: AZITHROMYCIN 500 MG in DEXTROSE 5% IN WATER 250 ML 250 MG IV (11:27)
[2025-02-22] MEDS: cefTRIAXone 2,000 MG in SODIUM CHLORIDE 0.9% 100 ML 200 MG IV (13:00)
--- NOTE | 2025-02-22 13:10 | CM.DPC ---
DCP Cont: Per MD and RT, pt remains on high flow NC O2 and alternates with bipap and poor appetite and therefore blood sugars hard to manage with her DM and not yet stable for discharge today. SUMIT Linder
--- NOTE | 2025-02-22 14:16 | PC.NURSE ---
Addendum entered by Robert Cooper R.N. 02/22/25 15:00: Dr Oneal notified of BGC decrease from 458 to 247 per protocol. Original Note: Dr Oneal notified of BGC increase from 266 to 458.
--- NOTE | 2025-02-22 14:42 | P.PN_ITS ---
Subjective Subjective Date Patient Seen: 02/22/25 Interval history: Chief complaint: Shortness for breath secondary to and congestive heart failure History of present illness: 01/21: 74-year-old female, visiting from the [facility], with a history of asthma, congestive heart failure, chronic kidney disease, diabetes mellitus type 2, hypertension and diabetic neuropathy who presents with 1 day of increasing shortness of breath along with a mild cough. She has had no fevers or chills. She has no chest pain. Her chest x-ray shows an area of obvious infiltrate in the right lung, less impressive on the left side. Her D-dimer is 1784 with a troponin of 0.056, a CRP of 37.1 and a procalcitonin of 5.84. The white blood count is 18.2 and the BNP is 5020. This would suggest both congestive heart failure and pneumonia are present. Unfortunately with a creatinine of 2.86 she is not a candidate for CTA of the chest so will need a V/Q scan when that is available. Her list of medications includes several from the [facility] that are not typically used here or able to match to the medications we have available. Hospital course: 01/22: Patient developed severe hypoglycemia greater than 600 insulin infusion started patient intermittently requiring high-flow nasal cannula and BiPAP 01/23: Patient is having much less short of breath but still Patient has continued to have increases in her blood sugar up over 400 which is being compensated with insulin drip however with suspect that this is a reaction to the methylprednisolone being used for air trapping and wheezing. We will reduce the Solu-Medrol from 60 mg IV Q 8 hours to 30 mg IV q.12 we will start Novolin 70 30 Review of systems: No headache loss of consciousness No chest pain palpitations Shortness for breath is better but is still winded with any type of activity No abdominal pain nausea vomiting diarrhea No paresthesia paresis Physical exam: Obese female in respiratory distress and able to answer questions in short phrases HEENT unremarkable Heart sounds distant Lung sounds distant with short expiratory phases and wheezes with rales diminished sound transmission at bases and particularly at the right Abdomen nondistended Extremities no edema Moves all extremities Assessment and plan: This is a 74-year-old female, visiting from the [facility], with a history of asthma, congestive heart failure, chronic kidney disease, diabetes mellitus type 2, hypertension and diabetic neuropathy who presents with 1 day of increasing shortness of breath along with a mild cough. She has had no fevers or chills. She has no chest pain. Her chest x-ray shows an area of obvious infiltrate in the right lung, less impressive on the left side. Her D-dimer is 1784 with a troponin of 0.056, a CRP of 37.1 and a procalcitonin of 5.84. The white blood count is 18.2 and the BNP is 5020. This would suggest both congestive heart failure and pneumonia are present. Acute Hypoxemic Respiratory Failure, secondary to extensive right-sided pneumonia and pulmonary edema from congestive heart failure * -oxygen saturation was in the 20s to 30s on room air on presentation. On 15 L non-rebreather mask she was able to get up into the 80s and then when she was put on BiPAP she was into the 90s. * -most likely due to a combination of congestive heart failure and pneumonia based on preliminary test results * -chest x-ray is compatible with both diagnoses. * -oxygen by BiPAP or high-flow nasal cannula and titrate as needed. * -beta agonist inhaler therapy. * Deescalate Solu-Medrol to 30 mg IV q.12 Pneumonia, preliminary blood cultures with Gram-positive cocci * Continue ceftriaxone and azithromycin * Add vancomycin * Await culture and sensitivity Suspected congestive heart failure * -echocardiogram ordered * -Lasix IV q.12 hours and follow electrolytes. * -follow troponin. * -continue losartan Insulin Dependent DM with Diabetic Neuropathy, complicated by severe hyperglycemia requiring insulin drip * Insulin drip for hyperglycemia * Resumed subcutaneous NPH and regular * Reduce corticosteroid Hyperlipidemia, present on admission, chronic. * -continue atorvastatin Chronic Kidney disease, present on admission, chronic. * -creatinine 2.86, rechecked daily Hypertension, present on admission, chronic. * -continue clonidine, amlodipine, losartan. Starting on doses that are below her usual chronic dose. Adjust as indicated. Her backup decision maker is her and her daughter who is an ED doctor. Enoxaparin for DVT prevention Code status: * Full Code Blue Time-Based Coding :: 35 minutes spent with patient and on the chart (including review of chart, obtaining history, exam, reviewing outside data, placing orders, documenting exam and treatment plan, and counseling patient) Exam Vital Signs (past 8 hours): - 02/22/25 06:45 02/22/25 07:00 02/22/25 07:00 Pulse Rate 76 74 Respiratory Rate 15 15 Blood Pressure 118/59 L Pulse Oximetry 97 95 Oxygen Delivery Method Oxygen Flow Rate Fraction of Inspired Oxygen 02/22/25 07:00 02/22/25 07:15 02/22/25 07:24 Pulse Rate 74 82 Respiratory Rate 16 18 Blood Pressure Pulse Oximetry 97 95 Oxygen Delivery Method BiPAP Oxygen Flow Rate Fraction of Inspired Oxygen 02/22/25 07:29 02/22/25 07:30 02/22/25 07:45 Pulse Rate 84 79 79 Respiratory Rate 18 22 17 Blood Pressure Pulse Oximetry 95 96 96 Oxygen Delivery Method Heated High Flow Oxygen Flow Rate 40 Fraction of Inspired Oxygen 65 02/22/25 08:00 02/22/25 08:00 02/22/25 08:15 Pulse Rate 83 81 Respiratory Rate 24 23 Blood Pressure 124/68 Pulse Oximetry 97 95 Oxygen Delivery Method Oxygen Flow Rate Fraction of Inspired Oxygen 02/22/25 08:30 02/22/25 08:45 02/22/25 09:00 Pulse Rate 82 82 80 Respiratory Rate 30 H 28 H 21 Blood Pressure Pulse Oximetry 91 94 94 Oxygen Delivery Method Oxygen Flow Rate Fraction of Inspired Oxygen 02/22/25 09:00 02/22/25 09:15 02/22/25 09:30 Pulse Rate 80 73 Respiratory Rate 31 H 16 Blood Pressure 120/63 Pulse Oximetry 92 95 Oxygen Delivery Method Oxygen Flow Rate Fraction of Inspired Oxygen 02/22/25 09:45 02/22/25 10:00 02/22/25 10:00 Pulse Rate 71 68 Respiratory Rate 17 17 Blood Pressure 111/55 L Pulse Oximetry 94 94 Oxygen Delivery Method Oxygen Flow Rate Fraction of Inspired Oxygen 02/22/25 10:15 02/22/25 10:30 02/22/25 10:45 Pulse Rate 71 80 82 Respiratory Rate 17 20 29 H Blood Pressure Pulse Oximetry 95 92 94 Oxygen Delivery Method Oxygen Flow Rate Fraction of Inspired Oxygen 02/22/25 11:00 02/22/25 11:00 02/22/25 11:04 Pulse Rate 79 82 Respiratory Rate 19 18 Blood Pressure 120/59 L Pulse Oximetry 94 94 Oxygen Delivery Method Oxygen Flow Rate Fraction of Inspired Oxygen 02/22/25 11:07 02/22/25 11:15 02/22/25 11:30 Pulse Rate 78 81 77 Respiratory Rate 18 19 21 Blood Pressure Pulse Oximetry 98 92 95 Oxygen Delivery Method Heated High Flow Oxygen Flow Rate 40 Fraction of Inspired Oxygen 60 02/22/25 11:45 02/22/25 12:00 02/22/25 12:00 Pulse Rate 81 84 Respiratory Rate 23 24 Blood Pressure 117/60 Pulse Oximetry 94 94 Oxygen Delivery Method Oxygen Flow Rate Fraction of Inspired Oxygen 02/22/25 12:15 Pulse Rate 82 Respiratory Rate 18 Blood Pressure Pulse Oximetry 93 Oxygen Delivery Method Oxygen Flow Rate Fraction of Inspired Oxygen Fraction of Inspired Oxygen 60 SaO2/FiO2 Ratio 156 Oxygen Delivery Method Heated High Flow Oxygen Flow Rate 40 Objective Labs 02/22/25 05:51 02/22/25 05:51 Labs: Laboratory Results - last 24 hr 02/21/25 02/21/25 02/21/25 16:35 17:49 17:55 WBC RBC Hgb Hct MCV MCH MCHC RDW Plt Count Sodium 131 L Potassium 5.4 H Chloride 95 L Carbon Dioxide 26 BUN 93 H Creatinine 3.77 H Estimated GFR 12 L BUN/Creatinine Ratio 24.7 H Glucose 630 H* D POC Whole Bld Glucose > 500 H* > 500 H* Calcium 7.6 L 02/21/25 02/21/25 02/21/25 19:58 21:52 22:15 WBC RBC Hgb Hct MCV MCH MCHC RDW Plt Count Sodium Potassium Chloride Carbon Dioxide BUN Creatinine Estimated GFR BUN/Creatinine Ratio Glucose 564 H* POC Whole Bld Glucose > 500 H* > 500 H* Calcium 02/21/25 02/21/25 02/22/25 23:34 23:44 00:44 WBC RBC Hgb Hct MCV MCH MCHC RDW Plt Count Sodium Potassium Chloride Carbon Dioxide BUN Creatinine Estimated GFR BUN/Creatinine Ratio Glucose 437 H D POC Whole Bld Glucose > 500 H* 412 H Calcium 02/22/25 02/22/25 02/22/25 01:46 02:53 04:04 WBC RBC Hgb Hct MCV MCH MCHC RDW Plt Count Sodium Potassium Chloride Carbon Dioxide BUN Creatinine Estimated GFR BUN/Creatinine Ratio Glucose POC Whole Bld Glucose 303 H D 287 H 217 H Calcium 02/22/25 02/22/25 02/22/25 05:12 05:51 06:17 WBC 14.6 H RBC 3.88 L Hgb 11.4 L Hct 34.8 L MCV 89.5 MCH 29.3 MCHC 32.7 RDW 15.8 H Plt Count 188 Sodium 136 L Potassium 4.9 Chloride 101 Carbon Dioxide 28 BUN 99 H Creatinine 3.62 H Estimated GFR 13 L BUN/Creatinine Ratio 27.3 H Glucose 219 H D POC Whole Bld Glucose 242 H 223 H Calcium 7.9 L 02/22/25 02/22/25 02/22/25 07:39 09:04 10:10 WBC RBC Hgb Hct MCV MCH MCHC RDW Plt Count Sodium Potassium Chloride Carbon Dioxide BUN Creatinine Estimated GFR BUN/Creatinine Ratio Glucose POC Whole Bld Glucose 260 H 266 H 353 H Calcium 02/22/25 02/22/25 02/22/25 11:01 12:01 13:03 WBC RBC Hgb Hct MCV MCH MCHC RDW Plt Count Sodium Potassium Chloride Carbon Dioxide BUN Creatinine Estimated GFR BUN/Creatinine Ratio Glucose POC Whole Bld Glucose 260 H 252 H 265 H Calcium 02/22/25 14:02 WBC RBC Hgb Hct MCV MCH MCHC RDW Plt Count Sodium Potassium Chloride Carbon Dioxide BUN Creatinine Estimated GFR BUN/Creatinine Ratio Glucose POC Whole Bld Glucose 458 H* D Calcium PFSH Medical History (Updated 02/20/25 @ 19:05 by Robert Odonnell MD) Diabetic neuropathy Hypertension Diabetes mellitus CKD (chronic kidney disease) stage 4, GFR 15-29 ml/min Active asthma Congestive heart failure Family History (Updated 02/20/25 @ 19:01 by Robert Odonnell MD) Daughter Healthy adult Son Healthy adult Social History household members: spouse Smoking Status: Never smoker Assessment & Plan Time-Based Coding :: [TOTAL MINUTES] spent with patient and on the chart (including review of chart, obtaining history, exam, reviewing outside data, placing orders, documenting exam and treatment plan, and counseling patient) on [DATE].
[2025-02-22 14:46] LABS: Acinetobacter calcoa-baumannii Not Detected (Not Detect); Bacteroides fragilis Not Detected (Not Detect); Candida auris Not Detected (Not Detect); Candida glabrata Not Detected (Not Detect); Cryptococcus neoformans/gatti Not Detected (Not Detect); Enterobacterales Not Detected (Not Detect); Enterococcus faecalis Not Detected (Not Detect); Enterococcus faecium Not Detected (Not Detect); Klebsiella aerogenes Not Detected (Not Detect); Proteus species Not Detected (Not Detect); Serratia marcescens Not Detected (Not Detect); Staphylococcus epidermidis Detected (Not Detect); Staphylococcus lugdunensis Not Detected (Not Detect); Staphylococcus species Detected (Not Detect); Stenotrophomonas maltophilia Not Detected (Not Detect); Streptococcus agalactiae (Gr B Not Detected (Not Detect); Streptococcus pneumonia Not Detected (Not Detect); Streptococcus pyogenes (Gr A) Not Detected (Not Detect); Streptococcus species Not Detected (Not Detect); mecA/C Resistance Not Detected (Not Detect)
[2025-02-22] MEDS: LINEZOLID 600 MG/300 ML IV.SOLN IV (16:13)
[2025-02-22 16:47] LABS: Alanine Aminotransferase 40 IU/L (<35); Albumin 3.4 g/dL (3.5-5.0); Albumin Globulin Ratio 0.9 (1.0-2.8); Alkaline Phosphatase 97 U/L (38-126); Blood Urea Nitrogen 105 mg/dL (7-17); Calcium 7.8 mg/dL (8.4-10.2); Carbon Dioxide 27 mmol/L (22-32); Chloride 102 mmol/L (98-107); Estimated Glomerular Filt Rate 15 mL/min (>60); Globulin 3.7 g/dL (1.7-4.1); Glucose 203 mg/dL (70-99); HEMOLYSIS < 15 (0-50); Potassium 4.7 mmol/L (3.4-5.1); Sodium 137 mmol/L (137-145); Total Protein 7.1 g/dL (6.3-8.2)
[2025-02-22] MEDS: INSULIN DRIP PREMIX 100 UNIT/100 ML PLAST..BAG 24 UNIT IV (18:47)
[2025-02-22] MEDS: FAMOTIDINE 20 MG/2 ML VIAL IV (21:05)
[2025-02-22] MEDS: ATORVASTATIN 20 MG TABLET 40 MG PO (21:05)
[2025-02-23] VITALS (113 sets, daily range): BP systolic 122–181; BP diastolic 62–79; PULSE 73–95; RESP 15–61; TEMP 36.3–36.4; O2SAT 89–100
[2025-02-23] MEDS: FUROSEMIDE 40 MG/4 ML VIAL IV ×2 (00:07→13:23)
[2025-02-23] MEDS: INSULIN DRIP PREMIX 100 UNIT/100 ML PLAST..BAG 7 UNIT IV (00:08)
[2025-02-23] MEDS: LINEZOLID 600 MG/300 ML IV.SOLN IV ×2 (04:34→17:21)
[2025-02-23 05:02] LABS: Hematocrit 34.3 % (36-46); Hemoglobin 11.4 g/dL (12.0-16.0); Mean Corpuscular HGB Conc 33.3 % (30-36); Mean Corpuscular Hemoglobin 29.4 PG (26-34); Mean Corpuscular Volume 88.3 fL (80-100); Platelet Count 191 X10^3/uL (150-400)
[2025-02-23 05:19] LABS: Alanine Aminotransferase 40 IU/L (<35); Albumin 3.3 g/dL (3.5-5.0); Albumin Globulin Ratio 1.0 (1.0-2.8); Alkaline Phosphatase 83 U/L (38-126); Blood Urea Nitrogen 103 mg/dL (7-17); Calcium 7.5 mg/dL (8.4-10.2); Carbon Dioxide 27 mmol/L (22-32); Chloride 101 mmol/L (98-107); Estimated Glomerular Filt Rate 17 mL/min (>60); Globulin 3.4 g/dL (1.7-4.1); Glucose 163 mg/dL (70-99); HEMOLYSIS < 15 (0-50); Potassium 4.3 mmol/L (3.4-5.1); Sodium 137 mmol/L (137-145); Total Protein 6.7 g/dL (6.3-8.2)
[2025-02-23] MEDS: ALBUTEROL 2.5 MG/3 ML NEB (ADULT) INH ×5 (07:24→23:22)
[2025-02-23] MEDS: BUDESONIDE 0.5 MG/2 ML NEB INH ×2 (07:25→19:20)
[2025-02-23] MEDS: AMLODIPINE 5 MG TABLET 2.5 MG PO (08:17)
[2025-02-23] MEDS: PREGABALIN 75 MG CAPSULE PO (08:24)
[2025-02-23] MEDS: LOSARTAN 25 MG TABLET 12.5 MG PO (08:25)
[2025-02-23] MEDS: ENOXAPARIN 30 MG/0.3 ML SYRINGE SUBCUT (08:25)
--- NOTE | 2025-02-23 09:03 | DI.RAD.S_ITS ---
PROCEDURE: XR CHEST 1V INDICATIONS: oxygenation requirements TECHNIQUE: One view of the chest was acquired. COMPARISON: [facility], CR, XR CHEST 1V, 02/21/2025, 12:18. FINDINGS: Surgical changes and devices: None. Lungs and pleura: Patchy airspace opacities are again seen in right hemithorax with interval improved lung aeration compared to previous study. No pleural effusions or pneumothorax. Mediastinum: Mediastinal contours appear normal. Heart size is enlarged. Bones and chest wall: No suspicious bony lesions. Overlying soft tissues appear unremarkable. IMPRESSION: Finding is suggestive of resolving right-sided pulmonary infiltrates. No significant pleural effusion. No pneumothorax. Dictated by: Hernando Smith M.D. on 02/23/2025 at 8:57 Approved by: Hernando Smith M.D. on 02/23/2025 at 8:58
[2025-02-23] MEDS: SODIUM CHLORIDE 0.9% FLUSH 10 ML IV ×2 (09:15→20:57)
[2025-02-23] MEDS: INSULIN NPH/REG 70-30 100 UNIT/ML 10ML VIAL 20 UNIT SUBCUT (11:06)
[2025-02-23] MEDS: AZITHROMYCIN 500 MG in DEXTROSE 5% IN WATER 250 ML 250 MG IV (11:43)
[2025-02-23] MEDS: cefTRIAXone 2,000 MG in SODIUM CHLORIDE 0.9% 100 ML 200 MG IV (13:22)
[2025-02-23] MEDS: INSULIN DRIP PREMIX 100 UNIT/100 ML PLAST..BAG 16 UNIT IV (14:31)
[2025-02-23 15:41] LABS: Osmolality, Serum 341 mOsmol/kg (280-301)
[2025-02-23] MEDS: INSULIN GLARGINE 100 UNIT/ML 3ML PEN 60 UNIT SUBCUT (17:22)
--- NOTE | 2025-02-23 18:36 | P.PN_ITS ---
Subjective Subjective Date Patient Seen: 02/23/25 Interval history: Chief complaint: Shortness for breath secondary to and congestive heart failure History of present illness: 01/21: 74-year-old female, visiting from the [facility], with a history of asthma, congestive heart failure, chronic kidney disease, diabetes mellitus type 2, hypertension and diabetic neuropathy who presents with 1 day of increasing shortness of breath along with a mild cough. She has had no fevers or chills. She has no chest pain. Her chest x-ray shows an area of obvious infiltrate in the right lung, less impressive on the left side. Her D-dimer is 1784 with a troponin of 0.056, a CRP of 37.1 and a procalcitonin of 5.84. The white blood count is 18.2 and the BNP is 5020. This would suggest both congestive heart failure and pneumonia are present. Unfortunately with a creatinine of 2.86 she is not a candidate for CTA of the chest so will need a V/Q scan when that is available. Her list of medications includes several from the [facility] that are not typically used here or able to match to the medications we have available. Hospital course: 02/21: Patient developed severe hypoglycemia greater than 600 insulin infusion started patient intermittently requiring high-flow nasal cannula and BiPAP 02/22: Patient is having much less short of breath but still Patient has continued to have increases in her blood sugar up over 400 which is being compensated with insulin drip however with suspect that this is a reaction to the methylprednisolone being used for air trapping and wheezing. We will reduce the Solu-Medrol from 60 mg IV Q 8 hours to 30 mg IV q.12 we will start Novolin 70 30 02/23: Patient is successfully weaned off of high-flow oxygen down to nasal cannula oxygen and is saturating and tolerating this quite well we will converting from insulin infusion to subcutaneous basal bolus per pharmacy protocol Review of systems: No headache loss of consciousness No chest pain palpitations Shortness for breath is better but is still winded with any type of activity No abdominal pain nausea vomiting diarrhea No paresthesia paresis Physical exam: Obese female in respiratory distress and able to answer questions in short phrases HEENT unremarkable Heart sounds distant Lung sounds distant with short expiratory phases and wheezes with rales diminished sound transmission at bases and particularly at the right Abdomen nondistended Extremities no edema Moves all extremities Assessment and plan: This is a 74-year-old female, visiting from the [facility], with a history of asthma, congestive heart failure, chronic kidney disease, diabetes mellitus type 2, hypertension and diabetic neuropathy who presents with 1 day of increasing shortness of breath along with a mild cough. She has had no fevers or chills. She has no chest pain. Her chest x-ray shows an area of obvious infiltrate in the right lung, less impressive on the left side. Her D-dimer is 1784 with a troponin of 0.056, a CRP of 37.1 and a procalcitonin of 5.84. The white blood count is 18.2 and the BNP is 5020. This would suggest both congestive heart failure and pneumonia are present. Acute Hypoxemic Respiratory Failure, secondary to extensive right-sided pneumonia and pulmonary edema from congestive heart failure * -oxygen saturation was in the 20s to 30s on room air on presentation. On 15 L non-rebreather mask she was able to get up into the 80s and then when she was put on BiPAP she was into the 90s. * -most likely due to a combination of congestive heart failure and pneumonia based on preliminary test results * -chest x-ray is compatible with both diagnoses. * -oxygen by BiPAP or high-flow nasal cannula and titrate as needed. * -beta agonist inhaler therapy. * Deescalate Solu-Medrol to 30 mg IV q.12 Pneumonia, preliminary blood cultures with Gram-positive cocci * Continue ceftriaxone and azithromycin * Add vancomycin * Await culture and sensitivity Suspected congestive heart failure * -echocardiogram normal systolic function suspected diastolic dysfunction * -continue losartan Insulin Dependent DM with Diabetic Neuropathy, complicated by severe hyperglycemia requiring insulin drip * Insulin drip for hyperglycemia changing to basal bolus subcutaneous insulin Hyperlipidemia, present on admission, chronic. * -continue atorvastatin Chronic Kidney disease, present on admission, chronic. * -creatinine 2.86, rechecked daily Hypertension, present on admission, chronic. * -continue clonidine, amlodipine, losartan. Starting on doses that are below her usual chronic dose. Adjust as indicated. Her backup decision maker is her and her daughter who is an ED doctor. Enoxaparin for DVT prevention Code status: * Full Code Blue Time-Based Coding :: 35 minutes spent with patient and on the chart (including review of chart, obtaining history, exam, reviewing outside data, placing orders, documenting exam and treatment plan, and counseling patient) Exam Vital Signs (past 8 hours): - 02/23/25 10:45 02/23/25 10:52 02/23/25 10:54 Pulse Rate 90 87 89 Respiratory Rate 18 18 Blood Pressure Pulse Oximetry 95 96 99 Oxygen Delivery Method Heated High Flow Oxygen Flow Rate 40 Fraction of Inspired Oxygen 50 02/23/25 11:00 02/23/25 11:15 02/23/25 11:30 Pulse Rate 84 86 87 Respiratory Rate Blood Pressure 140/71 Pulse Oximetry 99 96 95 Oxygen Delivery Method Oxygen Flow Rate Fraction of Inspired Oxygen 02/23/25 11:52 02/23/25 12:00 02/23/25 12:15 Pulse Rate 88 86 85 Respiratory Rate Blood Pressure Pulse Oximetry 95 93 96 Oxygen Delivery Method Oxygen Flow Rate Fraction of Inspired Oxygen 02/23/25 12:30 02/23/25 12:45 02/23/25 13:00 Pulse Rate 85 93 H 90 Respiratory Rate Blood Pressure Pulse Oximetry 97 96 96 Oxygen Delivery Method Oxygen Flow Rate Fraction of Inspired Oxygen 02/23/25 13:15 02/23/25 13:16 02/23/25 13:16 Pulse Rate 87 87 Respiratory Rate Blood Pressure 140/67 Pulse Oximetry 93 93 Oxygen Delivery Method Oxygen Flow Rate Fraction of Inspired Oxygen 02/23/25 13:30 02/23/25 13:45 02/23/25 14:00 Pulse Rate 80 79 79 Respiratory Rate Blood Pressure Pulse Oximetry 97 96 96 Oxygen Delivery Method Oxygen Flow Rate Fraction of Inspired Oxygen 02/23/25 14:09 02/23/25 14:09 02/23/25 14:15 Pulse Rate 85 87 Respiratory Rate Blood Pressure 130/63 Pulse Oximetry 95 93 Oxygen Delivery Method Oxygen Flow Rate Fraction of Inspired Oxygen 02/23/25 14:30 02/23/25 14:45 02/23/25 15:00 Pulse Rate 89 85 85 Respiratory Rate Blood Pressure 137/72 Pulse Oximetry 96 97 97 Oxygen Delivery Method Oxygen Flow Rate Fraction of Inspired Oxygen 02/23/25 15:03 02/23/25 15:10 02/23/25 15:10 Pulse Rate 86 85 Respiratory Rate 18 Blood Pressure 137/72 Pulse Oximetry 95 97 Oxygen Delivery Method Nasal Cannula Oxygen Flow Rate 4 Fraction of Inspired Oxygen 36 02/23/25 15:15 02/23/25 15:30 02/23/25 15:45 Pulse Rate 87 86 86 Respiratory Rate Blood Pressure Pulse Oximetry 94 95 95 Oxygen Delivery Method Oxygen Flow Rate Fraction of Inspired Oxygen 02/23/25 16:00 02/23/25 16:00 02/23/25 16:15 Pulse Rate 85 86 Respiratory Rate Blood Pressure 148/72 H Pulse Oximetry 93 94 Oxygen Delivery Method Oxygen Flow Rate Fraction of Inspired Oxygen 02/23/25 16:30 02/23/25 16:45 02/23/25 17:00 Pulse Rate 83 84 83 Respiratory Rate Blood Pressure Pulse Oximetry 95 94 95 Oxygen Delivery Method Oxygen Flow Rate Fraction of Inspired Oxygen 02/23/25 17:00 Pulse Rate Respiratory Rate Blood Pressure 159/72 H Pulse Oximetry Oxygen Delivery Method Oxygen Flow Rate Fraction of Inspired Oxygen Fraction of Inspired Oxygen 36 SaO2/FiO2 Ratio 263 Oxygen Delivery Method Nasal Cannula Oxygen Flow Rate 4 Objective Labs 02/23/25 04:40 02/23/25 04:40 Labs: Laboratory Results - last 24 hr 02/20/25 02/22/25 02/22/25 19:34 18:58 20:04 WBC RBC Hgb Hct MCV MCH MCHC RDW Plt Count Sodium Potassium Chloride Carbon Dioxide BUN Creatinine Estimated GFR BUN/Creatinine Ratio Glucose POC Whole Bld Glucose 292 H 295 H Serum Osmolality 341 H Calcium Total Bilirubin AST ALT Alkaline Phosphatase Total Protein Albumin Globulin Albumin/Globulin Ratio 02/22/25 02/22/25 02/22/25 21:01 21:59 23:07 WBC RBC Hgb Hct MCV MCH MCHC RDW Plt Count Sodium Potassium Chloride Carbon Dioxide BUN Creatinine Estimated GFR BUN/Creatinine Ratio Glucose POC Whole Bld Glucose 244 H 245 H 197 H Serum Osmolality Calcium Total Bilirubin AST ALT Alkaline Phosphatase Total Protein Albumin Globulin Albumin/Globulin Ratio 02/23/25 02/23/25 02/23/25 00:01 01:01 01:59 WBC RBC Hgb Hct MCV MCH MCHC RDW Plt Count Sodium Potassium Chloride Carbon Dioxide BUN Creatinine Estimated GFR BUN/Creatinine Ratio Glucose POC Whole Bld Glucose 170 H 134 H 135 H Serum Osmolality Calcium Total Bilirubin AST ALT Alkaline Phosphatase Total Protein Albumin Globulin Albumin/Globulin Ratio 02/23/25 02/23/25 02/23/25 03:02 04:25 04:40 WBC 13.7 H RBC 3.88 L Hgb 11.4 L Hct 34.3 L MCV 88.3 MCH 29.4 MCHC 33.3 RDW 15.3 H Plt Count 191 Sodium 137 Potassium 4.3 Chloride 101 Carbon Dioxide 27 BUN 103 H Creatinine 2.89 H Estimated GFR 17 L BUN/Creatinine Ratio 35.6 H Glucose 163 H POC Whole Bld Glucose 130 H 116 H Serum Osmolality Calcium 7.5 L Total Bilirubin 0.3 AST 45 H ALT 40 H Alkaline Phosphatase 83 Total Protein 6.7 Albumin 3.3 L Globulin 3.4 Albumin/Globulin Ratio 1.0 02/23/25 02/23/25 02/23/25 05:03 05:58 07:01 WBC RBC Hgb Hct MCV MCH MCHC RDW Plt Count Sodium Potassium Chloride Carbon Dioxide BUN Creatinine Estimated GFR BUN/Creatinine Ratio Glucose POC Whole Bld Glucose 218 H D 131 H 123 H Serum Osmolality Calcium Total Bilirubin AST ALT Alkaline Phosphatase Total Protein Albumin Globulin Albumin/Globulin Ratio 02/23/25 02/23/25 02/23/25 07:52 09:11 09:55 WBC RBC Hgb Hct MCV MCH MCHC RDW Plt Count Sodium Potassium Chloride Carbon Dioxide BUN Creatinine Estimated GFR BUN/Creatinine Ratio Glucose POC Whole Bld Glucose 108 H 202 H 204 H Serum Osmolality Calcium Total Bilirubin AST ALT Alkaline Phosphatase Total Protein Albumin Globulin Albumin/Globulin Ratio 02/23/25 02/23/25 02/23/25 11:06 11:58 13:14 WBC RBC Hgb Hct MCV MCH MCHC RDW Plt Count Sodium Potassium Chloride Carbon Dioxide BUN Creatinine Estimated GFR BUN/Creatinine Ratio Glucose POC Whole Bld Glucose 205 H 209 H 307 H Serum Osmolality Calcium Total Bilirubin AST ALT Alkaline Phosphatase Total Protein Albumin Globulin Albumin/Globulin Ratio 02/23/25 02/23/25 02/23/25 14:13 15:27 16:42 WBC RBC Hgb Hct MCV MCH MCHC RDW Plt Count Sodium Potassium Chloride Carbon Dioxide BUN Creatinine Estimated GFR BUN/Creatinine Ratio Glucose POC Whole Bld Glucose 265 H 174 H 119 H Serum Osmolality Calcium Total Bilirubin AST ALT Alkaline Phosphatase Total Protein Albumin Globulin Albumin/Globulin Ratio [facility] Medical History (Updated 02/20/25 @ 19:05 by Robert Odonnell MD) Diabetic neuropathy Hypertension Diabetes mellitus CKD (chronic kidney disease) stage 4, GFR 15-29 ml/min Active asthma Congestive heart failure Family History (Updated 02/20/25 @ 19:01 by Robert Odonnell MD) Daughter Healthy adult Son Healthy adult Social History household members: spouse Smoking Status: Never smoker Assessment & Plan Time-Based Coding :: [TOTAL MINUTES] spent with patient and on the chart (including review of chart, obtaining history, exam, reviewing outside data, placing orders, documenting exam and treatment plan, and counseling patient) on [DATE].
[2025-02-23] MEDS: FUROSEMIDE 20 MG/2 ML VIAL IV (20:56)
[2025-02-23] MEDS: ATORVASTATIN 20 MG TABLET 40 MG PO (20:56)
[2025-02-23] MEDS: FAMOTIDINE 20 MG/2 ML VIAL IV (20:56)
[2025-02-23] MEDS: INSULIN LISPRO 100 UNIT/ML 3ML VIAL SUBCUT (21:49)
[2025-02-24] VITALS (69 sets, daily range): BP systolic 121–181; BP diastolic 58–104; PULSE 73–97; RESP 14–33; TEMP 36.3–36.7; O2SAT 91–100
[2025-02-24 05:13] LABS: Hematocrit 36.0 % (36-46); Hemoglobin 11.6 g/dL (12.0-16.0); Mean Corpuscular HGB Conc 32.4 % (30-36); Mean Corpuscular Hemoglobin 29.0 PG (26-34); Mean Corpuscular Volume 89.4 fL (80-100); Platelet Count 205 X10^3/uL (150-400)
[2025-02-24 05:30] LABS: Alanine Aminotransferase 42 IU/L (<35); Albumin 3.4 g/dL (3.5-5.0); Albumin Globulin Ratio 1.0 (1.0-2.8); Alkaline Phosphatase 87 U/L (38-126); Blood Urea Nitrogen 91 mg/dL (7-17); Calcium 7.5 mg/dL (8.4-10.2); Carbon Dioxide 31 mmol/L (22-32); Chloride 101 mmol/L (98-107); Estimated Glomerular Filt Rate 18 mL/min (>60); Globulin 3.4 g/dL (1.7-4.1); Glucose 214 mg/dL (70-99); HEMOLYSIS < 15 (0-50); Potassium 4.5 mmol/L (3.4-5.1); Sodium 139 mmol/L (137-145); Total Protein 6.8 g/dL (6.3-8.2)
[2025-02-24] MEDS: LINEZOLID 600 MG/300 ML IV.SOLN IV ×2 (05:52→18:33)
[2025-02-24] MEDS: FUROSEMIDE 20 MG/2 ML VIAL IV ×2 (07:04→18:33)
--- NOTE | 2025-02-24 07:59 | DI.RAD.S_ITS ---
PROCEDURE: XR CHEST 1V INDICATIONS: pneumonia TECHNIQUE: One view of the chest was acquired. COMPARISON: [facility], CR, XR CHEST 1V, 02/23/2025, 9:04. [facility], CR, XR CHEST 1V, 02/21/2025, 12:18. FINDINGS: Surgical changes and devices: None. Lungs and pleura: Decreased patchy airspace opacities. Mediastinum: Mediastinal contours appear normal. Heart size is normal. Bones and chest wall: No suspicious bony lesions. Overlying soft tissues appear unremarkable. IMPRESSION: Decreased patchy airspace opacities. Dictated by: Andrew Flores M.D. on 02/24/2025 at 8:56 Approved by: Andrew Flores M.D. on 02/24/2025 at 8:58
[2025-02-24] MEDS: INSULIN LISPRO 100 UNIT/ML 3ML VIAL 15 UNIT SUBCUT ×2 (08:38→17:56)
[2025-02-24] MEDS: INSULIN LISPRO 100 UNIT/ML 3ML VIAL SUBCUT ×4 (08:39→22:09)
[2025-02-24] MEDS: INSULIN GLARGINE 100 UNIT/ML 3ML PEN 60 UNIT SUBCUT ×2 (08:40→22:10)
[2025-02-24] MEDS: ENOXAPARIN 30 MG/0.3 ML SYRINGE SUBCUT (08:40)
[2025-02-24] MEDS: PREGABALIN 75 MG CAPSULE PO (08:41)
[2025-02-24] MEDS: AMLODIPINE 5 MG TABLET 2.5 MG PO (08:41)
[2025-02-24] MEDS: LOSARTAN 25 MG TABLET 12.5 MG PO (08:41)
[2025-02-24] MEDS: SODIUM CHLORIDE 0.9% FLUSH 10 ML IV ×2 (08:43→22:25)
[2025-02-24] MEDS: ALBUTEROL 2.5 MG/3 ML NEB (ADULT) INH ×2 (10:54→18:19)
--- NOTE | 2025-02-24 11:29 | CM.DPNOTE ---
DCP note [facility]IL [facility] reviewed EMR per RN, now down to 2ltrs O2. none at baseline. continue to wean today. hopeful to downgrade to floor status today and dc tran. per provider in morning rounds, anticipate another two days before ready to dc. P: here another 2 days. anticipate home with family when medically stable. CM team will continue to follow as needed in case any DCP needs should arise [facility]
[2025-02-24] MEDS: AZITHROMYCIN 500 MG in DEXTROSE 5% IN WATER 250 ML 250 MG IV (12:27)
[2025-02-24] MEDS: cefTRIAXone 2,000 MG in SODIUM CHLORIDE 0.9% 100 ML 200 MG IV (14:27)
--- NOTE | 2025-02-24 17:41 | PM.PN.1 ---
Subjective Subjective Date Patient Seen: 02/24/25 Interval history: Chief complaint: Shortness for breath secondary to viral pneumonia and congestive heart failure History of present illness: 01/21: 74-year-old female, visiting from the [facility], with a history of asthma, congestive heart failure, chronic kidney disease, diabetes mellitus type 2, hypertension and diabetic neuropathy who presents with 1 day of increasing shortness of breath along with a mild cough. She has had no fevers or chills. She has no chest pain. Her chest x-ray shows an area of obvious infiltrate in the right lung, less impressive on the left side. Her D-dimer is 1784 with a troponin of 0.056, a CRP of 37.1 and a procalcitonin of 5.84. The white blood count is 18.2 and the BNP is 5020. This would suggest both congestive heart failure and pneumonia are present. Unfortunately with a creatinine of 2.86 she is not a candidate for CTA of the chest so will need a V/Q scan when that is available. Her list of medications includes several from the [facility] that are not typically used here or able to match to the medications we have available. Hospital course: 02/21: Patient developed severe hypoglycemia greater than 600 insulin infusion started patient intermittently requiring high-flow nasal cannula and BiPAP 02/22: Patient is having much less short of breath but still Patient has continued to have increases in her blood sugar up over 400 which is being compensated with insulin drip however with suspect that this is a reaction to the methylprednisolone being used for air trapping and wheezing. We will reduce the Solu-Medrol from 60 mg IV Q 8 hours to 30 mg IV q.12 we will start Novolin 70 30 02/23: Patient is successfully weaned off of high-flow oxygen down to nasal cannula oxygen and is saturating and tolerating this quite well we will converting from insulin infusion to subcutaneous basal bolus per pharmacy protocol 02/24: Patient's oxygen requirement is reducing patient's pneumonia is clearing on chest x-ray and is much improved de-escalated to med surge Review of systems: No headache loss of consciousness No chest pain palpitations Shortness for breath is better but is still winded with any type of activity No abdominal pain nausea vomiting diarrhea No paresthesia paresis Physical exam: Obese female in respiratory distress and able to answer questions in short phrases HEENT unremarkable Heart sounds distant Lung sounds longer with better air movement and vesicular breath sounds Abdomen nondistended Extremities no edema Moves all extremities Assessment and plan: This is a 74-year-old female, visiting from the [facility], with a history of asthma, congestive heart failure, chronic kidney disease, diabetes mellitus type 2, hypertension and diabetic neuropathy who presents with 1 day of increasing shortness of breath along with a mild cough. She has had no fevers or chills. She has no chest pain. Her chest x-ray shows an area of obvious infiltrate in the right lung, less impressive on the left side. Her D-dimer is 1784 with a troponin of 0.056, a CRP of 37.1 and a procalcitonin of 5.84. The white blood count is 18.2 and the BNP is 5020. This would suggest both congestive heart failure and pneumonia are present. Acute Hypoxemic Respiratory Failure, secondary to extensive right-sided pneumonia and pulmonary edema from congestive heart failure Highly suspect that this is a viral pneumonia with mentioned of sick contacts with improvement Continue ceftriaxone and azithromycin Add vancomycin for Gram-positive cocci bacteremia sensitivity is still pending Await culture and sensitivity Suspected congestive heart failure -echocardiogram normal systolic function suspected diastolic dysfunction -continue losartan Insulin Dependent DM with Diabetic Neuropathy, complicated by severe hyperglycemia requiring insulin drip now on basal bolus Now starting basal bolus Hyperlipidemia, present on admission, chronic. -continue atorvastatin Chronic Kidney disease, present on admission, chronic. -creatinine 2.86, rechecked daily Hypertension, present on admission, chronic. -continue clonidine, amlodipine, losartan. Starting on doses that are below her usual chronic dose. Adjust as indicated.Her backup decision maker is her and her daughter who is an ED doctor. Enoxaparin for DVT prevention Code status: Full Code Blue Time-Based Coding :: 35 minutes spent with patient and on the chart (including review of chart, obtaining history, exam, reviewing outside data, placing orders, documenting exam and treatment plan, and counseling patient) Exam Vital Signs (past 8 hours): - 02/24/25 09:53 02/24/25 09:53 02/24/25 10:00 Temperature Pulse Rate 92 H 87 Respiratory Rate 21 Blood Pressure 168/75 H Pulse Oximetry 93 Oxygen Delivery Method Oxygen Flow Rate Fraction of Inspired Oxygen 02/24/25 10:15 02/24/25 10:30 02/24/25 10:45 Temperature Pulse Rate 95 H 86 90 Respiratory Rate 23 20 21 Blood Pressure Pulse Oximetry 95 95 91 Oxygen Delivery Method Oxygen Flow Rate Fraction of Inspired Oxygen 02/24/25 10:45 02/24/25 10:55 02/24/25 11:00 Temperature Pulse Rate 88 87 Respiratory Rate 18 18 Blood Pressure 181/79 H Pulse Oximetry 100 99 Oxygen Delivery Method Nasal Cannula Oxygen Flow Rate 2 Fraction of Inspired Oxygen 28 02/24/25 11:00 02/24/25 11:15 02/24/25 11:30 Temperature Pulse Rate 89 86 Respiratory Rate 17 18 Blood Pressure 161/78 H Pulse Oximetry 95 96 Oxygen Delivery Method Oxygen Flow Rate Fraction of Inspired Oxygen 02/24/25 11:45 02/24/25 12:00 02/24/25 12:00 Temperature Pulse Rate 87 86 Respiratory Rate 17 17 Blood Pressure 150/67 H Pulse Oximetry 95 96 Oxygen Delivery Method Oxygen Flow Rate Fraction of Inspired Oxygen 02/24/25 12:15 02/24/25 12:30 02/24/25 12:45 Temperature Pulse Rate 87 87 90 Respiratory Rate 17 16 18 Blood Pressure Pulse Oximetry 95 94 94 Oxygen Delivery Method Oxygen Flow Rate Fraction of Inspired Oxygen 02/24/25 13:00 02/24/25 13:00 02/24/25 13:15 Temperature Pulse Rate 90 90 Respiratory Rate 17 26 H Blood Pressure 154/68 H Pulse Oximetry 94 94 Oxygen Delivery Method Oxygen Flow Rate Fraction of Inspired Oxygen 02/24/25 13:30 02/24/25 13:45 02/24/25 14:00 Temperature Pulse Rate 93 H 93 H Respiratory Rate 22 22 Blood Pressure 157/73 H Pulse Oximetry 95 96 Oxygen Delivery Method Oxygen Flow Rate Fraction of Inspired Oxygen 02/24/25 14:00 02/24/25 14:15 02/24/25 14:30 Temperature Pulse Rate 96 H 93 H 94 H Respiratory Rate 21 21 23 Blood Pressure Pulse Oximetry 94 95 94 Oxygen Delivery Method Oxygen Flow Rate Fraction of Inspired Oxygen 02/24/25 14:45 02/24/25 15:00 02/24/25 15:00 Temperature 97.7 F Pulse Rate 96 H 96 H Respiratory Rate 22 28 H Blood Pressure 150/70 H Pulse Oximetry 94 94 Oxygen Delivery Method Oxygen Flow Rate Fraction of Inspired Oxygen Fraction of Inspired Oxygen 28 SaO2/FiO2 Ratio 342 Oxygen Delivery Method Nasal Cannula Oxygen Flow Rate 2 Objective Labs 02/24/25 04:10 02/24/25 04:10 Labs: Laboratory Results - last 24 hr 02/20/25 02/23/25 02/24/25 07:17 21:45 04:10 WBC 14.7 H RBC 4.02 Hgb 11.6 L Hct 36.0 MCV 89.4 MCH 29.0 MCHC 32.4 RDW 15.7 H Plt Count 205 Sodium 139 Potassium 4.5 Chloride 101 Carbon Dioxide 31 BUN 91 H Creatinine 2.68 H Estimated GFR 18 L BUN/Creatinine Ratio 34.0 H Glucose 214 H POC Whole Bld Glucose 294 H D Calcium 7.5 L Total Bilirubin 0.4 AST 42 H ALT 42 H Alkaline Phosphatase 87 Total Protein 6.8 Albumin 3.4 L Globulin 3.4 Albumin/Globulin Ratio 1.0 A.calcoaceticus-baumannii cmplx PCR Not detected Bacteroides fragilis Not detected Oralia albicans (PCR) Not detected Oralia auris (PCR) Not detected C. glabrata (PCR) Not detected C. krusei (PCR) Not detected C. parapsilosis (PCR) Not detected C. tropicalis (PCR) Not detected C. neoform/gattii (PCR) Not detected Enterobacterales (PCR) Not detected E. cloacae complex PCR Not detected Enterococc faecalis PCR Not detected Enterococc faecium PCR Not detected E. coli (PCR) Not detected H. influenzae (PCR) Not detected Klebsiella aerogenes (PCR) Not detected Klebsiella oxytoca PCR Not detected Klebsiella pneumoniae Not detected List. monocytogenes PCR Not detected N. meningitidis (PCR) Not detected Proteus species (PCR) Not detected Salmonella spp. (PCR) Not detected Serratia marcescens PCR Not detected Staphylococcus sp PCR Detected Staph aureus (PCR) Not detected mecA/C & MREJ Resist Gene Not applicable mecA/C-Methicil Resis Gene Not detected mcr-1 Colistin Res Gene PCR Not applicable Staph epidermidis (PCR) Detected Staph lugdunensis PCR Not detected S. maltophilia (PCR) Not detected Streptococcus sp PCR Not detected Group A Strep (PCR) Not detected Strep agalactiae (PCR) Not detected Strep pneumoniae (PCR) Not detected P. aeruginosa (PCR) Not detected Saarh/B-Vanco Res Genes Not applicable blaIMP Car res Gene PCR Not applicable KPC-Carbap Res Gene PCR Not applicable blaNDM Car Res Gene PCR Not applicable OXA-48 Carbapenem Resis Gene (PCR) Not applicable blaVIM Car Res Gene PCR Not applicable CTX-M Gene Resistance (PCR) Not applicable 02/24/25 02/24/25 02/24/25 07: 10:36 12:13 WBC RBC Hgb Hct MCV MCH MCHC RDW Plt Count Sodium Potassium Chloride Carbon Dioxide BUN Creatinine Estimated GFR BUN/Creatinine Ratio Glucose POC Whole Bld Glucose 198 H 210 H 212 H Calcium Total Bilirubin AST ALT Alkaline Phosphatase Total Protein Albumin Globulin Albumin/Globulin Ratio A.calcoaceticus-baumannii cmplx PCR Bacteroides fragilis Oralia albicans (PCR) Oralia auris (PCR) C. glabrata (PCR) C. krusei (PCR) C. parapsilosis (PCR) C. tropicalis (PCR) C. neoform/gattii (PCR) Enterobacterales (PCR) E. cloacae complex PCR Enterococc faecalis PCR Enterococc faecium PCR E. coli (PCR) H. influenzae (PCR) Klebsiella aerogenes (PCR) Klebsiella oxytoca PCR Klebsiella pneumoniae List. monocytogenes PCR N. meningitidis (PCR) Proteus species (PCR) Salmonella spp. (PCR) Serratia marcescens PCR Staphylococcus sp PCR Staph aureus (PCR) mecA/C & MREJ Resist Gene mecA/C-Methicil Resis Gene mcr-1 Colistin Res Gene PCR Staph epidermidis (PCR) Staph lugdunensis PCR S. maltophilia (PCR) Streptococcus sp PCR Group A Strep (PCR) Strep agalactiae (PCR) Strep pneumoniae (PCR) P. aeruginosa (PCR) Sarah/B-Vanco Res Genes blaIMP Car res Gene PCR KPC-Carbap Res Gene PCR blaNDM Car Res Gene PCR OXA-48 Carbapenem Resis Gene (PCR) blaVIM Car Res Gene PCR CTX-M Gene Resistance (PCR) 02/24/25 17:23 WBC RBC Hgb Hct MCV MCH MCHC RDW Plt Count Sodium Potassium Chloride Carbon Dioxide BUN Creatinine Estimated GFR BUN/Creatinine Ratio Glucose POC Whole Bld Glucose 293 H Calcium Total Bilirubin AST ALT Alkaline Phosphatase Total Protein Albumin Globulin Albumin/Globulin Ratio A.calcoaceticus-baumannii cmplx PCR Bacteroides fragilis Oralia albicans (PCR) Oralia auris (PCR) C. glabrata (PCR) C. krusei (PCR) C. parapsilosis (PCR) C. tropicalis (PCR) C. neoform/gattii (PCR) Enterobacterales (PCR) E. cloacae complex PCR Enterococc faecalis PCR Enterococc faecium PCR E. coli (PCR) H. influenzae (PCR) Klebsiella aerogenes (PCR) Klebsiella oxytoca PCR Klebsiella pneumoniae List. monocytogenes PCR N. meningitidis (PCR) Proteus species (PCR) Salmonella spp. (PCR) Serratia marcescens PCR Staphylococcus sp PCR Staph aureus (PCR) mecA/C & MREJ Resist Gene mecA/C-Methicil Resis Gene mcr-1 Colistin Res Gene PCR Staph epidermidis (PCR) Staph lugdunensis PCR S. maltophilia (PCR) Streptococcus sp PCR Group A Strep (PCR) Strep agalactiae (PCR) Strep pneumoniae (PCR) P. aeruginosa (PCR) Sarah/B-Vanco Res Genes blaIMP Car res Gene PCR KPC-Carbap Res Gene PCR blaNDM Car Res Gene PCR OXA-48 Carbapenem Resis Gene (PCR) blaVIM Car Res Gene PCR CTX-M Gene Resistance (PCR) [facility] Medical History (Updated 02/20/25 @ 19:05 by Robert Odonnell MD) Diabetic neuropathy Hypertension Diabetes mellitus CKD (chronic kidney disease) stage 4, GFR 15-29 ml/min Active asthma Congestive heart failure Family History (Updated 02/20/25 @ 19:01 by Robert Odonnell MD) Daughter Healthy adult Son Healthy adult Social History household members: spouse Smoking Status: Never smoker Assessment & Plan Time-Based Coding :: [TOTAL MINUTES] spent with patient and on the chart (including review of chart, obtaining history, exam, reviewing outside data, placing orders, documenting exam and treatment plan, and counseling patient) on [DATE].
[2025-02-24] MEDS: BUDESONIDE 0.5 MG/2 ML NEB INH (18:19)
--- NOTE | 2025-02-24 18:43 | PC.NURSE ---
Day Shift Note Patient reported dizziness after getting up to BSC this AM for a large BM. BP stable in the 160s/80s and CBG was 210. Pt had approx 300 ml out of emesis. Reported that this felt like vertigo which she says she has gotten before. Dr. Oneal notified of these events, no new orders. Pt also experienced same symptoms, minus the nausea, when up to BSC and wheelchair this afternoon. Pt declines need for any interventions and is sitting in wheelchair per her request visiting with family. Pt was moved from room 228 to 220. All belongings with pt including cell phone and clothing and own wheelchair. Weaned to RA by RT, SpO2 low 90s but over 92%. Dior catheter removed at 1800 without issue. Call light within reach, using appropriately to make needs known.
[2025-02-24] MEDS: ATORVASTATIN 20 MG TABLET 40 MG PO (22:24)
[2025-02-24] MEDS: FAMOTIDINE 20 MG/2 ML VIAL IV (22:25)
[2025-02-25] VITALS (11 sets, daily range): BP systolic 138–179; BP diastolic 75–97; PULSE 90–104; RESP 16–26; TEMP 36.1–36.6; O2SAT 93–100
[2025-02-25] MEDS: LINEZOLID 600 MG/300 ML IV.SOLN IV (04:57)
[2025-02-25 05:05] LABS: Hematocrit 38.7 % (36-46); Hemoglobin 12.7 g/dL (12.0-16.0); Mean Corpuscular HGB Conc 32.7 % (30-36); Mean Corpuscular Hemoglobin 29.0 PG (26-34); Mean Corpuscular Volume 88.8 fL (80-100); Platelet Count 218 X10^3/uL (150-400)
[2025-02-25 05:18] LABS: Alanine Aminotransferase 41 IU/L (<35); Albumin 3.5 g/dL (3.5-5.0); Albumin Globulin Ratio 1.0 (1.0-2.8); Alkaline Phosphatase 82 U/L (38-126); Blood Urea Nitrogen 68 mg/dL (7-17); Calcium 8.3 mg/dL (8.4-10.2); Carbon Dioxide 38 mmol/L (22-32); Chloride 102 mmol/L (98-107); Estimated Glomerular Filt Rate 23 mL/min (>60); Globulin 3.5 g/dL (1.7-4.1); Glucose 59 mg/dL (70-99); HEMOLYSIS < 15 (0-50); Potassium 4.2 mmol/L (3.4-5.1); Sodium 144 mmol/L (137-145); Total Protein 7.0 g/dL (6.3-8.2)
[2025-02-25] MEDS: FUROSEMIDE 20 MG/2 ML VIAL IV ×3 (06:39→18:33)
--- NOTE | 2025-02-25 08:19 | PM.PN.1 ---
Subjective Subjective Interval history: Summary: 01/21: 74-year-old female, visiting from the [facility], with a history of asthma, congestive heart failure, chronic kidney disease, diabetes mellitus type 2, hypertension and diabetic neuropathy who presents with 1 day of increasing shortness of breath along with a mild cough. She has had no fevers or chills. She has no chest pain. Her chest x-ray shows an area of obvious infiltrate in the right lung, less impressive on the left side. Her D-dimer is 1784 with a troponin of 0.056, a CRP of 37.1 and a procalcitonin of 5.84. The white blood count is 18.2 and the BNP is 5020. This would suggest both congestive heart failure and pneumonia are present. Unfortunately with a creatinine of 2.86 she is not a candidate for CTA of the chest so will need a V/Q scan when that is available. Her list of medications includes several from the [facility] that are not typically used here or able to match to the medications we have available. Hospital course: 02/21: Patient developed severe hypoglycemia greater than 600 insulin infusion started patient intermittently requiring high-flow nasal cannula and BiPAP 02/22: Patient is having much less short of breath but still Patient has continued to have increases in her blood sugar up over 400 which is being compensated with insulin drip however with suspect that this is a reaction to the methylprednisolone being used for air trapping and wheezing. We will reduce the Solu-Medrol from 60 mg IV Q 8 hours to 30 mg IV q.12 we will start Novolin 70 30 02/23: Patient is successfully weaned off of high-flow oxygen down to nasal cannula oxygen and is saturating and tolerating this quite well we will converting from insulin infusion to subcutaneous basal bolus per pharmacy protocol 02/24: Patient's oxygen requirement is reducing patient's pneumonia is clearing on chest x-ray and is much improved de-escalated to med surge S: She is having a lot of nausea and some vomiting refractory to Zofran. She also has some vertigo today. She was on oxygen and her breathing is stable. She was minimal cough. Exam Vital Signs (past 8 hours): - 02/25/25 04:51 Temperature 97.0 F L Pulse Rate 95 H Respiratory Rate 16 Blood Pressure 164/83 H Pulse Oximetry 94 Oxygen Flow Rate 2 Fraction of Inspired Oxygen 28 SaO2/FiO2 Ratio 346 Oxygen Delivery Method Nasal Cannula Oxygen Flow Rate 2 Narrative Exam Narrative: NAD, alert and oriented. Fluent speech. She appears ill. Lungs are clear, normal rate and effort. Heart is regular, no murmur gallop or rub. Abdomen is soft, non distended. Extremities are free of edema. Objective Imaging Chest x-ray: Radiologist's impression: 02/23: IMPRESSION: Decreased patchy airspace opacities. Labs 02/25/25 04:29 02/25/25 04:29 Labs: Laboratory Results - last 24 hr 02/20/25 02/24/25 02/24/25 07:17 10:36 12:13 WBC RBC Hgb Hct MCV MCH MCHC RDW Plt Count Sodium Potassium Chloride Carbon Dioxide BUN Creatinine Estimated GFR BUN/Creatinine Ratio Glucose POC Whole Bld Glucose 210 H 212 H Calcium Total Bilirubin AST ALT Alkaline Phosphatase Total Protein Albumin Globulin Albumin/Globulin Ratio A.calcoaceticus-baumannii cmplx PCR Not detected Bacteroides fragilis Not detected Oralia albicans (PCR) Not detected Oralia auris (PCR) Not detected C. glabrata (PCR) Not detected C. krusei (PCR) Not detected C. parapsilosis (PCR) Not detected C. tropicalis (PCR) Not detected C. neoform/gattii (PCR) Not detected Enterobacterales (PCR) Not detected E. cloacae complex PCR Not detected Enterococc faecalis PCR Not detected Enterococc faecium PCR Not detected E. coli (PCR) Not detected H. influenzae (PCR) Not detected Klebsiella aerogenes (PCR) Not detected Klebsiella oxytoca PCR Not detected Klebsiella pneumoniae Not detected List. monocytogenes PCR Not detected N. meningitidis (PCR) Not detected Proteus species (PCR) Not detected Salmonella spp. (PCR) Not detected Serratia marcescens PCR Not detected Staphylococcus sp PCR Detected Staph aureus (PCR) Not detected mecA/C & MREJ Resist Gene Not applicable mecA/C-Methicil Resis Gene Not detected mcr-1 Colistin Res Gene PCR Not applicable Staph epidermidis (PCR) Detected Staph lugdunensis PCR Not detected S. maltophilia (PCR) Not detected Streptococcus sp PCR Not detected Group A Strep (PCR) Not detected Strep agalactiae (PCR) Not detected Strep pneumoniae (PCR) Not detected P. aeruginosa (PCR) Not detected Sarah/B-Vanco Res Genes Not applicable blaIMP Car res Gene PCR Not applicable KPC-Carbap Res Gene PCR Not applicable blaNDM Car Res Gene PCR Not applicable OXA-48 Carbapenem Resis Gene (PCR) Not applicable blaVIM Car Res Gene PCR Not applicable CTX-M Gene Resistance (PCR) Not applicable 02/24/25 02/24/25 02/25/25 17:23 21:11 04:29 WBC 12.9 H RBC 4.36 Hgb 12.7 Hct 38.7 MCV 88.8 MCH 29.0 MCHC 32.7 RDW 15.5 H Plt Count 218 Sodium 144 Potassium 4.2 Chloride 102 Carbon Dioxide 38 H BUN 68 H Creatinine 2.21 H Estimated GFR 23 L BUN/Creatinine Ratio 30.8 H Glucose 59 L D POC Whole Bld Glucose 293 H 318 H Calcium 8.3 L Total Bilirubin 0.4 AST 39 H ALT 41 H Alkaline Phosphatase 82 Total Protein 7.0 Albumin 3.5 Globulin 3.5 Albumin/Globulin Ratio 1.0 A.calcoaceticus-baumannii cmplx PCR Bacteroides fragilis Oralia albicans (PCR) Oralia auris (PCR) C. glabrata (PCR) C. krusei (PCR) C. parapsilosis (PCR) C. tropicalis (PCR) C. neoform/gattii (PCR) Enterobacterales (PCR) E. cloacae complex PCR Enterococc faecalis PCR Enterococc faecium PCR E. coli (PCR) H. influenzae (PCR) Klebsiella aerogenes (PCR) Klebsiella oxytoca PCR Klebsiella pneumoniae List. monocytogenes PCR N. meningitidis (PCR) Proteus species (PCR) Salmonella spp. (PCR) Serratia marcescens PCR Staphylococcus sp PCR Staph aureus (PCR) mecA/C & MREJ Resist Gene mecA/C-Methicil Resis Gene mcr-1 Colistin Res Gene PCR Staph epidermidis (PCR) Staph lugdunensis PCR S. maltophilia (PCR) Streptococcus sp PCR Group A Strep (PCR) Strep agalactiae (PCR) Strep pneumoniae (PCR) P. aeruginosa (PCR) Sarah/B-Vanco Res Genes blaIMP Car res Gene PCR KPC-Carbap Res Gene PCR blaNDM Car Res Gene PCR OXA-48 Carbapenem Resis Gene (PCR) blaVIM Car Res Gene PCR CTX-M Gene Resistance (PCR) 02/25/25 06:56 WBC RBC Hgb Hct MCV MCH MCHC RDW Plt Count Sodium Potassium Chloride Carbon Dioxide BUN Creatinine Estimated GFR BUN/Creatinine Ratio Glucose POC Whole Bld Glucose 84 D Calcium Total Bilirubin AST ALT Alkaline Phosphatase Total Protein Albumin Globulin Albumin/Globulin Ratio A.calcoaceticus-baumannii cmplx PCR Bacteroides fragilis Oralia albicans (PCR) Oralia auris (PCR) C. glabrata (PCR) C. krusei (PCR) C. parapsilosis (PCR) C. tropicalis (PCR) C. neoform/gattii (PCR) Enterobacterales (PCR) E. cloacae complex PCR Enterococc faecalis PCR Enterococc faecium PCR E. coli (PCR) H. influenzae (PCR) Klebsiella aerogenes (PCR) Klebsiella oxytoca PCR Klebsiella pneumoniae List. monocytogenes PCR N. meningitidis (PCR) Proteus species (PCR) Salmonella spp. (PCR) Serratia marcescens PCR Staphylococcus sp PCR Staph aureus (PCR) mecA/C & MREJ Resist Gene mecA/C-Methicil Resis Gene mcr-1 Colistin Res Gene PCR Staph epidermidis (PCR) Staph lugdunensis PCR S. maltophilia (PCR) Streptococcus sp PCR Group A Strep (PCR) Strep agalactiae (PCR) Strep pneumoniae (PCR) P. aeruginosa (PCR) Sarah/B-Vanco Res Genes blaIMP Car res Gene PCR KPC-Carbap Res Gene PCR blaNDM Car Res Gene PCR OXA-48 Carbapenem Resis Gene (PCR) blaVIM Car Res Gene PCR CTX-M Gene Resistance (PCR) [facility] Medical History Diabetic neuropathy Hypertension Diabetes mellitus CKD (chronic kidney disease) stage 4, GFR 15-29 ml/min Active asthma Congestive heart failure Family History Daughter Healthy adult Son Healthy adult Social History household members: spouse Smoking Status: Never smoker Assessment & Plan Assessment & Plan narrative: 1. Acute Hypoxemic Respiratory Failure, secondary to extensive right-sided pneumonia and pulmonary edema from congestive heart failure Highly suspect that this is a viral pneumonia with mentioned of sick contacts with improvement Continue ceftriaxone and azithromycin Add vancomycin for Gram-positive cocci bacteremia sensitivity is still pending Await culture and sensitivity 2. Suspected congestive heart failure -echocardiogram normal systolic function suspected diastolic dysfunction -continue losartan 3. Insulin Dependent DM with Diabetic Neuropathy, complicated by severe hyperglycemia requiring insulin drip now on basal bolus Now starting basal bolus 4. Hyperlipidemia, present on admission, chronic. -continue atorvastatin 5. Chronic Kidney disease, present on admission, chronic. -creatinine 2.86, rechecked daily 6. Hypertension, present on admission, chronic. -continue clonidine, amlodipine, losartan. Starting on doses that are below her usual chronic dose. Adjust as indicated.Her backup decision maker is her and her daughter who is an ED doctor. PLAN: -continue antibiotics with ceftriaxone (5 day course), stop linezolid as blood cultures w 08/14 with Staph epidermis consistent with contaminant. -out of bed, physical therapy -treat symptomatically, trial of Reglan. We will consider Ativan for nausea and vertigo if she fails to improve. -wean oxygen as able. Enoxaparin for DVT prevention Code status: Full Code Blue Time-Based Coding :: [TOTAL MINUTES] spent with patient and on the chart (including review of chart, obtaining history, exam, reviewing outside data, placing orders, documenting exam and treatment plan, and counseling patient) on [DATE].
[2025-02-25] MEDS: BUDESONIDE 0.5 MG/2 ML NEB INH ×2 (08:21→19:15)
[2025-02-25] MEDS: ALBUTEROL 2.5 MG/3 ML NEB (ADULT) INH ×3 (08:22→19:15)
[2025-02-25] MEDS: INSULIN LISPRO 100 UNIT/ML 3ML VIAL 15 UNIT SUBCUT (08:25)
[2025-02-25] MEDS: LOSARTAN 25 MG TABLET 12.5 MG PO (08:26)
[2025-02-25] MEDS: ENOXAPARIN 30 MG/0.3 ML SYRINGE SUBCUT (08:27)
[2025-02-25] MEDS: SODIUM CHLORIDE 0.9% FLUSH 10 ML IV ×2 (08:27→20:47)
[2025-02-25] MEDS: PREGABALIN 75 MG CAPSULE PO (08:27)
[2025-02-25] MEDS: AMLODIPINE 5 MG TABLET 2.5 MG PO (08:27)
[2025-02-25] MEDS: INSULIN GLARGINE 100 UNIT/ML 3ML PEN 60 UNIT SUBCUT ×2 (08:28→20:45)
[2025-02-25] MEDS: ONDANSETRON 4 MG/2 ML INJ IV (09:05)
[2025-02-25] MEDS: AZITHROMYCIN 500 MG in DEXTROSE 5% IN WATER 250 ML 250 MG IV (11:08)
[2025-02-25] MEDS: METOCLOPRAMIDE 10 MG/2 ML INJ 5 MG IV (11:10)
[2025-02-25] MEDS: INSULIN LISPRO 100 UNIT/ML 3ML VIAL SUBCUT ×3 (12:16→20:46)
[2025-02-25] MEDS: cefTRIAXone 2,000 MG in SODIUM CHLORIDE 0.9% 100 ML 200 MG IV (12:53)
[2025-02-25] MEDS: AMLODIPINE 5 MG TABLET PO (13:09)
[2025-02-25] MEDS: INSULIN LISPRO 100 UNIT/ML 3ML VIAL 18 UNIT SUBCUT (17:01)
[2025-02-25] MEDS: ATORVASTATIN 20 MG TABLET 40 MG PO (20:40)
[2025-02-25] MEDS: FAMOTIDINE 20 MG/2 ML VIAL IV (20:41)
[2025-02-26] VITALS: BP 147/83; PULSE 98; RESP 19; TEMP 36.7; O2SAT 94
[2025-02-26 04:00] VITALS: BP 140/87; PULSE 98; RESP 19; TEMP 36.6; O2SAT 95
[2025-02-26 06:18] LABS: Hematocrit 37.3 % (36-46); Hemoglobin 12.1 g/dL (12.0-16.0); Mean Corpuscular HGB Conc 32.5 % (30-36); Mean Corpuscular Hemoglobin 28.9 PG (26-34); Mean Corpuscular Volume 89.0 fL (80-100); Platelet Count 202 X10^3/uL (150-400)
[2025-02-26 06:42] LABS: Alanine Aminotransferase 42 IU/L (<35); Albumin 3.1 g/dL (3.5-5.0); Albumin Globulin Ratio 1.0 (1.0-2.8); Alkaline Phosphatase 78 U/L (38-126); Blood Urea Nitrogen 53 mg/dL (7-17); Calcium 8.3 mg/dL (8.4-10.2); Carbon Dioxide 38 mmol/L (22-32); Chloride 100 mmol/L (98-107); Estimated Glomerular Filt Rate 29 mL/min (>60); Globulin 3.0 g/dL (1.7-4.1); Glucose 81 mg/dL (70-99); HEMOLYSIS < 15 (0-50); Potassium 4.1 mmol/L (3.4-5.1); Sodium 142 mmol/L (137-145); Total Protein 6.1 g/dL (6.3-8.2)
[2025-02-26] MEDS: FUROSEMIDE 20 MG/2 ML VIAL IV (06:54)
[2025-02-26 08:00] VITALS: BP 161/95; PULSE 87; RESP 20; TEMP 36.8; O2SAT 98
--- NOTE | 2025-02-26 08:22 | PM.PN.1 ---
Subjective Subjective Interval history: S: Exam Vital Signs (past 8 hours): - 02/26/25 04:00 02/26/25 07:00 02/26/25 08:00 Temperature 97.9 F 98.2 F Pulse Rate 98 H 87 Respiratory Rate 19 20 Blood Pressure 140/87 161/95 H Pulse Oximetry 95 98 Oxygen Delivery Method Nasal Cannula Oxygen Flow Rate 0 2 Fraction of Inspired Oxygen 28 SaO2/FiO2 Ratio 346 Oxygen Delivery Method Nasal Cannula Oxygen Flow Rate 2 Narrative Exam Narrative: NAD, alert and oriented. Fluent speech. Lungs are clear, normal rate and effort. Heart is regular, no murmur gallop or rub. Abdomen is soft, non distended. Extremities are free of edema. Objective Labs 02/26/25 05:52 02/26/25 05:52 Labs: Laboratory Results - last 24 hr 02/25/25 02/25/25 02/25/25 11:17 16:27 20:43 WBC RBC Hgb Hct MCV MCH MCHC RDW Plt Count Sodium Potassium Chloride Carbon Dioxide BUN Creatinine Estimated GFR BUN/Creatinine Ratio Glucose POC Whole Bld Glucose 133 H 235 H D 326 H Calcium Total Bilirubin AST ALT Alkaline Phosphatase Total Protein Albumin Globulin Albumin/Globulin Ratio 02/26/25 02/26/25 02/26/25 03:18 05:52 07:32 WBC 11.6 H RBC 4.19 Hgb 12.1 Hct 37.3 MCV 89.0 MCH 28.9 MCHC 32.5 RDW 15.2 H Plt Count 202 Sodium 142 Potassium 4.1 Chloride 100 Carbon Dioxide 38 H BUN 53 H Creatinine 1.80 H Estimated GFR 29 L BUN/Creatinine Ratio 29.4 H Glucose 81 POC Whole Bld Glucose 62 L D 82 Calcium 8.3 L Total Bilirubin 0.3 AST 44 H ALT 42 H Alkaline Phosphatase 78 Total Protein 6.1 L Albumin 3.1 L Globulin 3.0 Albumin/Globulin Ratio 1.0 PFSH Medical History Diabetic neuropathy Hypertension Diabetes mellitus CKD (chronic kidney disease) stage 4, GFR 15-29 ml/min Active asthma Congestive heart failure Family History Daughter Healthy adult Son Healthy adult Social History household members: spouse Smoking Status: Never smoker Assessment & Plan Assessment & Plan narrative: 1. Acute hypoxic respiratory failure, present on admission and improving. 2. Pneumonia, present on admission and improving. 3. Diastolic heart failure, present on admission and improving. 4. DM type 2, stable. 5. HLD, stable. 6. Chronic kidney disease stage IV, stable. 7. Hypertension, stable. Plan: -continue antibiotics, anticipate a 5 day course. -wean O2 as able. -symptomatic treatment of nausea. -out of bed, physical therapy. Time-Based Coding :: [TOTAL MINUTES] spent with patient and on the chart (including review of chart, obtaining history, exam, reviewing outside data, placing orders, documenting exam and treatment plan, and counseling patient) on [DATE].
[2025-02-26] MEDS: LOSARTAN 25 MG TABLET 12.5 MG PO (08:34)
[2025-02-26] MEDS: PREGABALIN 75 MG CAPSULE PO (08:34)
[2025-02-26] MEDS: AMLODIPINE 5 MG TABLET PO (08:35)
[2025-02-26] MEDS: ENOXAPARIN 30 MG/0.3 ML SYRINGE SUBCUT (08:35)
[2025-02-26] MEDS: SODIUM CHLORIDE 0.9% FLUSH 10 ML IV (08:36)
[2025-02-26] MEDS: ALBUTEROL 2.5 MG/3 ML NEB (ADULT) INH ×2 (09:02→15:39)
[2025-02-26 09:03] VITALS: PULSE 88; RESP 16; O2SAT 100
[2025-02-26] MEDS: BUDESONIDE 0.5 MG/2 ML NEB INH (09:03)
[2025-02-26] MEDS: AZITHROMYCIN 500 MG in DEXTROSE 5% IN WATER 250 ML 250 MG IV (11:02)
--- NOTE | 2025-02-26 11:27 | DIET.CONS ---
Dietary Consultation Note Admission Date: 02/20/2025 08:32 Assessment:74 y F admitted for resp. failure from pneumonia/CHF. Dietitian screened for LOS. Reports good appetite currently, slightly decreased earlier d/t nausea. No decrease in appetite before hospitalization, typically 3 meals daily. Weight stable. Lives in [facility] and receives DM medications from there when she is staying in [place] and [place]. Does glargine and one other oral medication, reports she is unsure of what the medication would be called [place] in the [place]. Has BG meter as well. Takes BG twice daily, FBG and afternoon postprandial. FBG is around 80, postprandial is sometimes around 140s, sometimes around 180 or more. Doesn't do any sugar-sweetened beverages orjuice Ht: 149.86 cm Wt: 73 kg BMI: 32.5 UBW: no changes Last BM: 02/25/25 (02/25/25 11:07) MNA: 14 Mundo Score: 20 Diet: 02/21/25 Breakfast Carbohydrate Consistent Diet Diet Modifications: Carbohydrate level: Medium (3 CHO) Bedtime snack: No Reflex DM orders: No Food Texture: Level 7 - Regular Liquid Consistency: Level 0 - Thin Nutrition Percent Meal Consumed 100% 02/26/25 10:08 Percent Meal Consumed 100% 02/25/25 18:00 Percent Meal Consumed 25% 02/25/25 10:22 Labs: RBC 4.19 X10^6/uL (4.0-5.2) 02/26/25 05:52 Hgb 12.1 g/dL (12.0-16.0) 02/26/25 05:52 Hct 37.3 % (36-46) 02/26/25 05:52 Creatinine 1.80 mg/dL (0.52-1.04) H 02/26/25 05:52 Lactate 1.7 mmol/L (0.7-2.1) 02/20/25 09:25 NT-Pro-B Natriuret Pep 4850 pg/mL (<125) H 02/21/25 04:17 Nutrition Diagnosis: Altered nutrition related lab values (BG) r/t endocrine dysfunction and medication aeb prednisone and BG >200 Interventions: -basal bolus doses were started per pharmacy -Briefly reviewed CHO portions of rice/potatoes and BG ranges to aim for per the ADA EER: 30-45 g CHO at meals, 15-30 g CHo snakcs Monitoring/Evaluations: BG Electronically Signed by: Gunjan Rubio 02/26/25 11:27 Clinical Dietitian [address] [address]
[2025-02-26 12:00] VITALS: BP 148/79; PULSE 89; RESP 18; TEMP 36.4; O2SAT 93
[2025-02-26] MEDS: cefTRIAXone 2,000 MG in SODIUM CHLORIDE 0.9% 100 ML 200 MG IV (12:03)
[2025-02-26] MEDS: INSULIN LISPRO 100 UNIT/ML 3ML VIAL SUBCUT ×2 (12:07→16:59)
[2025-02-26] MEDS: INSULIN LISPRO 100 UNIT/ML 3ML VIAL 18 UNIT SUBCUT (12:08)
--- NOTE | 2025-02-26 13:21 | OT.IP.EVAL ---
Current Diagnoses Acute respiratory failure with hypoxia (02/20/25) Past Medical History (Last Reviewed 02/25/25 @ 08:20 by Braden Joya MD) Active asthma CKD (chronic kidney disease) stage 4, GFR 15-29 ml/min Congestive heart failure Diabetes mellitus Diabetic neuropathy Hypertension Occupational Therapy Inpatient Evaluation/Re-Eval M1 PT/OT-IP Prior Functional Status Start: 02/26/25 13:49 Freq: NEEDED Status: Active Protocol: Document 02/26/25 13:21 MB (Rec: 02/26/25 14:01 MB Desktop) Medical Review Prior Functional Status Medical History Yes Reviewed Communication WNLs Mobility and Gait Mod I with RW, also has standard w/c Activities of Daily Assistance from for socks, has caregivers in Living and IADL's her home in the [facility]. Social History Household Members spouse Living Arrangements House Number of Floors ( One Floor Floors) Number of Stairs To Pt lives in the [facility] and is visiting family in [place]? [place] and [place]. At grand-daughter's house in [place], there are 2 steps and 2 rails to enter Home Environment Standard Height Toilet,Walk in Shower Home Equipment Front Wheel Walker,Manual Wheelchair,Hand Held Shower, Grab Bars In Shower Employment Status Retired M1 PT/OT-IP Prior Functional Status Start: 02/26/25 13:52 Freq: NEEDED Status: Active Protocol: Document 02/26/25 13:52 [facility] (Rec: 02/26/25 14:06 [facility] Desktop) Medical Review Prior Functional Status Communication Pt able to speak and understand Slovak. Mobility and Gait Pt uses a SPC,FWW, and wc as needed. Activities of Daily Pt needs assist for LB dressing needs and in the Living and IADL's [place] has live in help. Prior Functional Pt states at her grandkid's house and information based Level (Other details on that below. ) Social History Household Members spouse Living Arrangements House Number of Floors ( One Floor Floors) Number of Stairs To 2 steps with bilateral rails. Enter/[place]ailing? Home Environment Standard Height Toilet,Walk in Shower Home Equipment Front Wheel Walker,Four Wheel Walker,Straight Cane, Manual Wheelchair,Shower Seat without Backrest,Hand Held Shower,Grab Bars Near Toilet,Grab Bars In Shower Additional Social Pt looking to fly back to the [facility] in April. History Comment M2 OT-IP Current Condition Start: 02/26/25 13:52 Freq: Status: Active Protocol: Document 02/26/25 13:52 [facility] (Rec: 02/26/25 14:06 [facility] Desktop) Occupational Therapy Current Condition Current Condition Evaluation Date 02/26/25 Treatment Diagnosis Acute Hypoxemic Respiratory Failure, PNA and PE Diagnosis Onset Date 02/26/25 M3 OT- IP Subjective and Pain Start: 02/26/25 13:52 Freq: Status: Active Protocol: Document 02/26/25 13:52 [facility] (Rec: 02/26/25 14:06 [facility] Desktop) OT- Subjective Occupational Therapy Visit Type Type Initial Evaluation Visit Start Time 13:21 Visit Stop Time 13:48 Occupational Therapy Visit Comments Patient Comments Pt agreed to get up. Patient/Caregiver TO go home. Goals OT Pain Assessment Location Right Leg Pain Behaviors Holding Area,[place] M4 OT- IP ADL's Start: 02/26/25 13:52 Freq: Status: Active Protocol: Document 02/26/25 13:52 [facility] (Rec: 02/26/25 14:06 [facility] Desktop) OT RIL-Ugjn-[id number] Comments OT Self-Feeding Not at meal time. Comments OT ADL-Grooming General Evaluation Grooming Ability Standby Assistance Areas Needing Retrieving/Set-up of Grooming Items Assistance Comments OT Grooming Comments While seated. OT ADL-Oral Care General Eval Oral Care Ability Independent Comments Oral Care Comments While seated. OT ADL-Dressing General Eval Lower Body Dressing Maximum Assistance Ability Areas Needing Socks Assistance OT ADL-Toileting Comments OT Toileting Not having to go. Comments OT ADL-Bathing Comments OT Bathing Comments Per nursing aid, pt able to shower on her own and just needing SBA. M5 OT- IP IADL's Start: 02/26/25 13:52 Freq: Status: Active Protocol: Document 02/26/25 13:52 [facility] (Rec: 02/26/25 14:06 [facility] Desktop) OT-Instrumental Activities of Daily Living Home Safety Awareness Awareness of Need Good Awareness for Assistance at Home Ability to Problem Able to Problem Solve Solve Emergency Situations Medication Management Medication No Deficits Identified Management Meal Preparation Meal Preparation Caregiver Provides Assist Chemistry Laboratory Technician Chemistry Laboratory Technician Caregiver Provides Assist M6 OT- IP Functional Cognition Start: 02/26/25 13:52 Freq: Status: Active Protocol: Document 02/26/25 13:52 [facility] (Rec: 02/26/25 14:06 [facility] Desktop) Cognitive Factors Limiting Selfcare Function Cognitive Ability Level of Alertness Alert Patient Orientation Name,Age,Birthday,Month,Date,Year,Day of Week,Place, Situation Attention Span Capable of Focused Attention,Capable of Sustained Ability Attention Ability to Follow Able to Follow One Step Commands Commands Cognitive Comments Cognitive Assessment Pt able to follow commands for ADL and mobility needs. Comments Pt needing vc for safety to use her hands to push up from the recliner and wc. OT- Vision and Hearing OT- Vision Assessment Visual Acuity Glasses For Reading Visual Attentiveness WFL Occular Pursuits WFL M7 OT- IP Mobility and Balance Start: 02/26/25 13:52 Freq: Status: Active Protocol: Document 02/26/25 13:52 [facility] (Rec: 02/26/25 14:06 [facility] Desktop) OT- Bed Mobility Assessment Supine to Sit Supine to Sit Assist Standby Assistance Sit to Supine Sit to Supine Assist Standby Assistance OT-Transfer Assessment Sit to and From Stand Sit to and from Standby Assistance Stand Transfers Transfer Ability Standby Assistance Technique Transfer Destination Bed,Chair,Wheelchair Transfer Technique Stand Step Pivot Devices Transfer Assistive Gait Belt,Front Wheeled Walker Devices Comments Mobility Comments SBA with bed mobility and use of FWW. O2 on RA 88% to 96% and would benefit from spirometer. OT- Balance Assessment Sitting Balance and Reactions Static Sitting Normal Balance Ability Dynamic Sitting Good Balance Ability Standing Balance and Reactions Static Standing Good Balance Ability Dynamic Standing Fair Balance Ability M8 OT- IP Objective Assessments Start: 02/26/25 13:52 Freq: Status: Active Protocol: Document 02/26/25 13:52 [facility] (Rec: 02/26/25 14:06 [facility] Desktop) OT Gross Range of Motion Upper Extremity Range of Motion Assessment Within Functional Limits OT Strength Upper Extremity Strength Assessment Within Functional Limits M9 OT- IP Assessment and Plan Start: 02/26/25 13:52 Freq: Status: Active Protocol: Document 02/26/25 13:52 [facility] (Rec: 02/26/25 14:06 [facility] Desktop) OT Summary Assessment and Plan Potential Rehabilitation Good Potential Analytic Complexity Moderate at Evaluation Summary OT Impairments Functional Mobility,Activity Tolerance Assessment Summary Pt MOD complexity and main barriers are decreased endurance and O2 decreases to 88% with exertion but after deep breaths increases to 96%. Pt has a very supportive family to assist with all her needs. Pt was able to shower with nursing aid and with SBA. Therefore pt will benefit from assist at home when medically stable. Pt will benefit from use of spirometer, nursing notified. Frequency of Treatment Frequency Of Discharge Treatment Discharge Recommendations OT Discharge Home with Assistance Recommendations Transportation Needs Private Vehicle at Discharge
--- NOTE | 2025-02-26 14:01 | PT.IIE ---
Current Diagnoses Acute respiratory failure with hypoxia (02/20/25) Medical History (Last Reviewed 02/25/25 @ 08:20 by Braden Joya MD) Active asthma CKD (chronic kidney disease) stage 4, GFR 15-29 ml/min Congestive heart failure Diabetes mellitus Diabetic neuropathy Hypertension Physical Therapy Inpatient Evaluation/Re-Eval M1 PT/OT-IP Prior Functional Status Start: 02/26/25 13:49 Freq: NEEDED Status: Active Protocol: Document 02/26/25 13:21 MB (Rec: 02/26/25 14:01 MB Desktop) Medical Review Prior Functional Status Medical History Yes Reviewed Communication WNLs Mobility and Gait Mod I with RW, also has standard w/c Activities of Daily Assistance from for socks, has caregivers in Living and IADL's her home in the [facility]. Social History Household Members spouse Living Arrangements House Number of Floors ( One Floor Floors) Number of Stairs To Pt lives in the [facility] and is visiting family in [place] and [place]. At grand-daughter's house in [place], there are 2 steps and 2 rails to enter Home Environment Standard Height Toilet,Walk in Shower Home Equipment Front Wheel Walker,Manual Wheelchair,Hand Held Shower, Grab Bars In Shower Employment Status Retired M2 PT-IP Current Condition Start: 02/26/25 13:49 Freq: NEEDED Status: Active Protocol: Document 02/26/25 13:21 [facility] (Rec: 02/26/25 14:01 MB Desktop) Physical Therapy Current Condition Current Condition Evaluation Date 02/26/25 Treatment Diagnosis R sided PNA, PE, CHF M3 PT-IP Subjective Start: 02/26/25 13:49 Freq: NEEDED Status: Active Protocol: Document 02/26/25 13:21 MB (Rec: 02/26/25 14:01 MB Desktop) Subjective Physical Therapy Visit Type Type Initial Evaluation Visit Start Time 13:21 Visit Stop Time 13:46 Number of QUALITY ENGINEERING MANAGER Visits 0 Physical Therapy Visit Comments Patient Comments Pt is agreeable to PT, is feeling better after a shower M4 PT-IP Mobility and Gait Start: 02/26/25 13:49 Freq: NEEDED Status: Active Protocol: Document 02/26/25 13:21 MB (Rec: 02/26/25 14:01 MB Desktop) PT-Bed Mobility Assessment Rolling Level of Assist Independent Supine to Sit Supine to Sit Independent Sit to Supine Sit to Supine Independent Scooting Scooting to Edge of Independent Bed PT-Transfer Assessment Sit to and From Stand Sit to and from Standby Assistance Stand Equipment Transfer Assistive Gait Belt,Front Wheeled Walker Device Transfers Transfer Destination Bed,Chair Transfer Ability Level of Assist Standby Assistance,1 Person Assistance,Use of Upper Extremities Gait Assessment Gait Gait Assistance Standby Assistance Required: Distance (Feet) 100 Assistive Devices Assistive Device Gait Belt,Front Wheeled Walker Gait Deviations General Gait Pattern Decreased Stride Length,Decreased Feet Clearance Factors Limiting Gait Function Factors Limiting Poor Safety Awareness Gait Function Comments Gait Comments Pt with ROMAN and O2 sats decrease to 89% on RA with longer gait and return to the low 90s with rest. HR ranges from high 80s to low 110s. Pt with right hip stiffness and bowing in distal right leg after old fracture and hip/femur surgery per pt 4 years ago Stair Climbing Assessment Evaluation Level of Assist On Contact Guard Assistance Stairs Devices Stair Climbing Left Railing,Right Railing Assistive Devices Technique/Endurance Stair Climbing Ascend and Descend Direction Stair Climbing Step to Step Technique Number of Steps 3 Climbed Query Text: Stair Climbing Set # 1 Repetitions (reps) Comments Stair Climbing SBA until descending final step and then CGA d/t steps Comments are high and rails do not reach far down for pt PT-Balance Assessment Sitting Balance and Reactions Static Sitting Normal Balance Ability Dynamic Sitting Good Balance Ability Standing Balance and Reactions Static Standing Good Balance Ability Dynamic Standing Good Balance Ability Device Used RW M5 PT-IP Objective Assessments Start: 02/26/25 13:49 Freq: NEEDED Status: Active Protocol: Document 02/26/25 13:21 MB (Rec: 02/26/25 14:01 MB Desktop) Orientation Orientation/Cognition Level of Alertness Alert Safety Awareness Decreased Safety Awareness Memory Description No Deficits Noted Gross Range of Motion Upper Extremity ROM Impairments Defer to OT Lower Extremity ROM Assessment Right Impaired Impairments Old hip/femur fracture and injury Strength Lower Extremity Strength Assessment Right Impaired Comments Strength Comments Right hip and femur changes Coordination Assessment Assessment Coordination NT, some changes in right leg Comments Sensation Assessment Comments Sensation Comments NT Muscle Tone Muscle Tone WNL Yes M6 PT-IP Treatment Start: 02/26/25 13:49 Freq: NEEDED Status: Active Protocol: Document 02/26/25 13:21 MB (Rec: 02/26/25 14:01 MB Desktop) Physical Therapy Treatment Education Education Provided Safety Other Treatments Other Treatment Ed pt in benefits of compression hose and getting up Performed every hour on long flight to and from the [facility], benefits of incentive spirometer M7 PT-IP Assessment and Plan Start: 02/26/25 13:49 Freq: NEEDED Status: Active Protocol: Document 02/26/25 13:21 MB (Rec: 02/26/25 14:01 MB Desktop) PT Summary Assessment and Plan Potential Rehabilitation Fair Potential Status of Condition Evolving at Evaluation Summary Impairments ROM,Strength,Balance,Coordination,Transfers,Gait, Activity Tolerance Assessment Summary Pt is a 74 y/o adm with PE, CHF and PNA. Pt mobilizes well and has a history of right leg fracture and surgery and uses a RW and w/c. Her O2 sats and HR are listed above. She will d/c back with her family in [place] and not return to the [facility] until April. No further acute PT needs, recommend up walking with RW and nsg SBA. Frequency of Treatment Frequency Of Discharge Treatment Recommendations To Nursing Amount of Assist 1 Person Assist Needed Discharge Recommendations PT Discharge Home with 05/03 Assist Available Recommendations Transportation Needs Private Vehicle at Discharge
--- NOTE | 2025-02-26 14:30 | CM.DPNOTE ---
WILLAP Cont Reviewed chart. Patient discussed in multidisciplinary rounds. Discharge home with family anticipated today; patient eager to discharge. Family bringing in patient's home med list; patient is visiting from the [facility]. Patient is at her functional baseline. Plan remains discharge home w/family. Social work team following clinical course closely in case any discharge needs or concerns arise. DONTA
[2025-02-26 15:39] VITALS: PULSE 93; RESP 16; O2SAT 97
[2025-02-26] MEDS: INSULIN LISPRO 100 UNIT/ML 3ML VIAL 20 UNIT SUBCUT (17:00)
--- NOTE | 2025-02-26 18:27 | P.DS_ITS ---
History of Present Illness History of Present Illness Chief complaint: SOB , wheezing X 1 day Narrative: From H&P: This is a 74-year-old female, visiting from the [facility], with a history of asthma, congestive heart failure, chronic kidney disease, diabetes mellitus type 2, hypertension and diabetic neuropathy who presents with 1 day of increasing shortness of breath along with a mild cough. She has had no fevers or chills. She has no chest pain. Her chest x-ray shows an area of obvious infiltrate in the right lung, less impressive on the left side. Her D-dimer is 1784 with a troponin of 0.056, a CRP of 37.1 and a procalcitonin of 5.84. The white blood count is 18.2 and the BNP is 5020. This would suggest both congestive heart failure and pneumonia are present. Unfortunately with a creatinine of 2.86 she is not a candidate for CTA of the chest so will need a V/Q scan when that is available. Her list of medications includes several from the [facility] that are not typically used here or able to match to the medications we have available. Discharge Providers Provider Date of admission: 02/20/25 08:32 Discharge Date: 02/26/25 Consults: 02/26/25 10:20 Consult to Occupational Therapy Evaluate & Treat Comment: Physician Instructions: Evaluate and treat Consult to Physical Therapy Evaluate & Treat Comment: Physician Instructions: Evaluate and Treat Discharge provider: Braden Joya MD Summary Hospital Course Discharge Diagnosis: 1. Acute Hypoxemic Respiratory Failure, secondary to extensive right-sided pneumonia 2. Pulmonary edema from congestive heart failure 3. ULICES, resolved. 4. Insulin Dependent DM with Diabetic Neuropathy, initially severe hyperglycemia requiring a an insulin drip. 5. Hyperlipidemia, present on admission, chronic. 6. Chronic Kidney disease, present on admission, chronic. 7. Hypertension, present on admission, chronic. Hospital Course: 02/21: Patient developed severe hypoglycemia greater than 600 insulin infusion started patient intermittently requiring high-flow nasal cannula and BiPAP. Started on antibiotics and diuretics. 02/22: Patient is having much less short of breath but still Patient has continued to have increases in her blood sugar up over 400 which is being compensated with insulin drip however with suspect that this is a reaction to the methylprednisolone being used for air trapping and wheezing. We will reduce the Solu-Medrol from 60 mg IV Q 8 hours to 30 mg IV q.12 we will start Novolin 70 30 02/23: Patient is successfully weaned off of high-flow oxygen down to nasal cannula oxygen and is saturating and tolerating this quite well we will converting from insulin infusion to subcutaneous basal bolus per pharmacy protocol 02/24: Patient's oxygen requirement is reducing patient's pneumonia is clearing on chest x-ray and is much improved de-escalated to med surge 02/25: Off oxygen but still having a significant amount of nausea with vomiting. Renal function improved. 02/26: Completely feels better, it baseline. She requested discharge home. Renal function normal. All medications reviewed. Stable for discharge with close follow up, we will hold losartan. Status at Discharge Cognitive/behavioral status at discharge: oriented Functional status at discharge: independent ambulation Overall status at discharge: patient is back to baseline Time Spent with Patient Time spent: Greater than 30 minutes Exam Vital Signs (past 8 hours): - 02/26/25 12:00 02/26/25 15:39 Temperature 97.5 F L Pulse Rate 89 93 H Respiratory Rate 18 16 Blood Pressure 148/79 H Pulse Oximetry 93 97 Oxygen Delivery Method Room Air Oxygen Flow Rate 0 Fraction of Inspired Oxygen 28 SaO2/FiO2 Ratio 346 Oxygen Delivery Method Room Air Oxygen Flow Rate 0 Narrative Exam Narrative: NAD, alert and oriented. Fluent speech. Lungs are clear, normal rate and effort. Heart is regular, no murmur gallop or rub. Abdomen is soft, non distended. Extremities are free of edema. Objective ECG Impression: Intervals [place] Rate: 90 P: 57 [place]: 220 QRS: 29 QRSD: 78 T: 82 QT: 366 QTc: 447 Interpretive Statements Sinus rhythm with 1st degree AV block Low voltage QRS Imaging Chest x-ray: Radiologist's impression: No significant interval change. Bilateral patchy airspace opacity, right greater than left. Echo: Radiologist's impression: Pending (called Cards to get final) Labs 02/26/25 05:52 02/26/25 05:52 Labs: Laboratory Results - last 24 hr 02/25/25 02/26/25 02/26/25 20:43 03:18 05:52 WBC 11.6 H RBC 4.19 Hgb 12.1 Hct 37.3 MCV 89.0 MCH 28.9 MCHC 32.5 RDW 15.2 H Plt Count 202 Sodium 142 Potassium 4.1 Chloride 100 Carbon Dioxide 38 H BUN 53 H Creatinine 1.80 H Estimated GFR 29 L BUN/Creatinine Ratio 29.4 H Glucose 81 POC Whole Bld Glucose 326 H 62 L D Calcium 8.3 L Total Bilirubin 0.3 AST 44 H ALT 42 H Alkaline Phosphatase 78 Total Protein 6.1 L Albumin 3.1 L Globulin 3.0 Albumin/Globulin Ratio 1.0 02/26/25 02/26/25 02/26/25 07:32 11:34 16:16 WBC RBC Hgb Hct MCV MCH MCHC RDW Plt Count Sodium Potassium Chloride Carbon Dioxide BUN Creatinine Estimated GFR BUN/Creatinine Ratio Glucose POC Whole Bld Glucose 82 201 H D 214 H Calcium Total Bilirubin AST ALT Alkaline Phosphatase Total Protein Albumin Globulin Albumin/Globulin Ratio [facility] Medical History Diabetic neuropathy Hypertension Diabetes mellitus CKD (chronic kidney disease) stage 4, GFR 15-29 ml/min Active asthma Congestive heart failure Family History Daughter Healthy adult Son Healthy adult Social History household members: spouse Smoking Status: Never smoker Discharge Plan Discharge Plan Patient Disposition: Home Provider Discharge Comment: Stable for discharge. Discharge orders & Medications Prescriptions: Continued rosuvastatin [Crestor] 20 mg tablet 20 mg PO DAILY febuxostat 40 mg PO PRN (Reason: gout) furosemide 40 mg tablet 40 mg PO DAILY sodium bicarbonate 325 mg tablet 325 mg PO BID PRN (Reason: stomach upset) felodipine 10 mg tablet extended release 24 hr 10 mg PO DAILY pregabalin 75 mg capsule 75 mg PO DAILY linagliptin 5 mg tablet 5 mg PO QAM ivabradine 5 mg tablet 5 mg PO BID Rx Instructions: must administer with a meal/food hesperidin-diosmin 500 mg capsule PO Patient Comments: 450mg/50mg tab VITAMIN B12 PO clonidine hcl 75 mcg 75 mcg PO DAILY clopidogrel bisulfate [id number] dobe-diosmin PO kalgae prime levocetrizine hcl tablet Patient Comments: 10mg/5mg tab (DME) salmeterol + fluticasone 25 mcg/ 250mcg See Rx Instructions .Route .MEDSUPPLY Rx Instructions: 25mcg/ 250mcg; insulin glargine [Lantus U-100 Insulin] 100 unit/mL solution 55 unit SUBCUT QAM Patient Comments: 55 UNITS AM AND 25 UNITS HS insulin glargine [Lantus U-100 Insulin] 100 unit/mL solution 25 unit SUBCUT DAILY Patient Comments: 25 UNITS HS Discontinued telmisartan 80 mg tablet 80 mg PO DAILY Medication counseling provided by Pharmacist: No Discharge Health Status Multidrug resistant organism: No MDRO Diet/Activity/Treatments Diet: Carb-consistent/Diabetic Activity: As tolerated Visit Report/Discharge Packet Instructions: DI for Pneumonia -- Adult Stand Alone Forms: Congestive Heart Failure, Patient Portal/API
== END 2025-02-26 20:10 | disposition home or self-care (01) | DRG 189 ==
LOC: ED 07:21 → AC 08:33 → ICU 09:35 → AC 02-24 17:29
PROVIDERS: Internal Medicine; Admitting Provider Family Medicine; Emergency Provider Emergency Medicine; Referring Provider Emergency Medicine; Visit Provider Family Medicine
DX: J96.01 Acute respiratory failure with hypoxia (principal); J18.9 Pneumonia, unspecified organism; I13.0 Hypertensive heart and chronic kidney disease with heart failure and stage 1 through stage 4 chronic kidney disease, or unspecified chronic kidney disease; N17.9 Acute kidney failure, unspecified; I50.30 Unspecified diastolic (congestive) heart failure; E11.40 Type 2 diabetes mellitus with diabetic neuropathy, unspecified; E78.5 Hyperlipidemia, unspecified; N18.9 Chronic kidney disease, unspecified; E11.22 Type 2 diabetes mellitus with diabetic chronic kidney disease; E11.65 Type 2 diabetes mellitus with hyperglycemia; M10.9 Gout, unspecified; J45.909 Unspecified asthma, uncomplicated; Z79.02 Long term (current) use of antithrombotics/antiplatelets; Z99.81 Dependence on supplemental oxygen; Z79.4 Long term (current) use of insulin
CPT/HCPCS: 36415; 36600; 71045; 80048; 80053; 82009; 82805; 82947; 82962; 83605; 83880; 83930; 84145; 84484; 85007; 85025; 85027; 85379; 85610; 85730; 86140; 87040; 87077; 87154; 87633; 87797; 93005; 93010; 93306; 94640; 94660; 94762; 96374; 96375; 97116; 97162; 97166; 99284; 99285; J0696; J1650; J1815; J1938; J2020; J2405; J2765; J2919; J7613